=== PATIENT | female | born 1995 | race Two or more races ===

== ENCOUNTER 2020-12-12 10:39 | Emergency (ER) | payer MEDICAID, SELFPAY ==
--- NOTE | ~2020-12-12 | XR_ITS ---
EXAMINATION: XR CHEST CLINICAL INFORMATION: Chest pain COMPARISON: None TECHNIQUE: 2 views of the chest were obtained. FINDINGS: No significant abnormality is noted involving the heart, lungs, mediastinum, bony thorax or soft tissues. XR/XR chest 2V IMPRESSION: Unremarkable examination.
[2020-12-12 11:05] VITALS: BP 107/68; PULSE 80; RESP 16; TEMP 36.7; O2SAT 98; BMI 19.7
--- NOTE | 2020-12-12 11:59 | ECG_ITS ---
Test Reason : CP Blood Pressure : / mmHG Vent. Rate : 068 BPM Atrial Rate : 068 BPM P-R Int : 154 ms QRS Dur : 082 ms QT Int : 346 ms P-R-T Axes : 028 083 044 degrees QTc Int : 367 ms Normal sinus rhythm Normal ECG When compared with ECG of 13-JUL-2018 13:06, Nonspecific T wave abnormality no longer evident in Inferior leads Nonspecific T wave abnormality no longer evident in Lateral leads QT has shortened Referred By: Martine Meyer Electronically Signed By:SAMIA GRANDE
--- NOTE | 2020-12-12 12:13 | ED.CHESTPAIN ---
HPI - Chest Pain General Chief Complaint: Chest Pain Stated Complaint: CHEST PAIN X 2WKS Time Seen by Provider: 12/12/20 11:58 Source: patient Mode of arrival: ambulatory Limitations: no limitations History of Present Illness MD complaint: chest pain Onset (ago): week(s) (2) Timing of current episode: episodic Onset: during rest Pain location: left chest Pain radiation: none Severity: moderate Quality: sharp Relieving factors: nothing Exacerbating factors: inspiration, palpation and movement Treatment prior to arrival: none Related Data Previous Rx's Medication Instructions Recorded cyclobenzaprine 10 mg tablet 10 mg PO TID PRN #14 tab 12/12/20 ibuprofen 600 mg tablet 600 mg PO Q6H PRN #30 tab 12/12/20 Allergies Allergy/AdvReac Type Severity Reaction Status Date / Time No Known Allergies Allergy Unverified 12/24/19 19:31 [No Known Allergies*] Review of Systems Review of Systems: Constitutional : No Weight loss, No Fever, No Chills ENT/Mouth : No sore throat, No Rhinorrhea Eyes: No Eye Pain, No Swelling Cardiovascular : pos Chest Pain, no SOB, no Dyspnea on Exertion, No Orthopnea, No Edema, No Palpitations Respiratory : No Cough, No Sputum Gastrointestinal : no Nausea, No Vomiting, No Diarrhea, No abdominal Pain, No Hematochezia, No Melena Genitourinary : No Dysuria, No Urinary Frequency Musculoskeletal : No joint pain, No Myalgias, No Joint Swelling Skin : No Skin Lesions, No rash Neuro : No Weakness, No Numbness, No Dizziness, No Headache Psych : No Anxiety/Panic, No Depression Heme/Lymph: No Bruising, No Lymphadenopathy Endocrine : No Polyuria, No Polydipsia All other systems reviewed and are negative [facility] Past Medical History Attestation statement: The following information was validated with the patient. Medical History Gender dysphoria Surgical History (Updated 12/12/20 @ 11:07 by Alexandra Sylvester) [place] teeth extracted Social History Social History (Updated 12/12/20 @ 12:14 by Martine Meyer DO) Patient Tobacco Use Status: Never used Tobacco Use of substances other than those prescribed or required for medical reasons: No Advance Directives: No Advance Directives Information Provided: No Physical Exam Vital Signs: Vital Signs: Last Vital Signs Temp 98.0 F 12/12/20 11:05 Pulse 80 12/12/20 11:05 Resp 16 12/12/20 11:05 BP 107/68 12/12/20 11:05 Pulse Ox 98 12/12/20 11:05 Body Mass Index 19.7 Appearance: Alert. Oriented X3. No acute distress. Eyes: Pupils equal, round and reactive to light. ENT: Pharynx normal. Neck: Normal inspection. Neck supple. CVS: Normal heart rate and rhythm. Pulses normal. Chest: ttp L lateral chest wall Respiratory: No respiratory distress. Breath sounds normal. Abdomen: Soft and non-tender. Skin: Skin warm and dry. Normal skin color. Normal skin turgor. Extremities: No lower extremity edema. No calf ttp Neuro: Oriented X 3. No motor deficit. No sensory deficit. Course Course Course Narrative: negative workup stable for DC MDM - Chest Pain MDM Narrative Medical decision making narrative: 25 yo male patient who takes testosterone injections weekly comes in with 2 weeks of pleuritic L sided chest pain no known risk factors - no smoking, no recent infections or vaccines - at this time will need labs, CXR, troponin x 1, ddimer dispo per results and findings. Lab Data Result diagrams: 12/12/20 13:04 12/12/20 13:04 Labs: Lab Results 12/12/20 12/12/20 12/12/20 Range/Units 13:04 13:04 13:04 WBC 5.2 (4.8-10.8) X10*3/uL RBC 5.63 H (4.20-5.50) X10*6/uL Hgb 15.8 (12.0-16.0) g/dl Hct 49.8 H (37-47) % MCV 88.5 (80-98) fL MCH 28.1 (27.0-33.0) pg MCHC 31.7 (31.0-35.0) g/dl RDW 14.9 (11.0-16.0) % Plt Count 243 (160-400) X10*3/uL MPV 9.8 (9.4-12.3) fL Immature Gran % (Auto) 0.2 (0.0-0.4) % Neut % (Auto) 58.5 (45-73) % Lymph % (Auto) 27.8 (20-40) % [place] % (Auto) 8.2 (2-11) % Eos % (Auto) 4.5 H (0-4) % Baso % (Auto) 0.8 (0-2) % Lymph # (Auto) 1.4 (1.2-4.9) X10*3/uL [place] # (Auto) 0.4 (0.1-1.2) X10*3/uL Eos # (Auto) 0.2 (0.0-0.4) X10*3/uL Baso # (Auto) 0.0 (0.0-0.2) X10*3/uL Abs Immat Gran (auto) 0.01 (0.00-0.03) X10*3/uL Absolute Neuts (auto) 3.0 (2.0-8.3) X10*3/uL Absolute Nucleated RBC 0.000 (0.0-0.012) X10*3/uL Nucleated RBC % (auto) 0.0 (0.0-0.2) /100WBC D-Dimer NG/ML Sodium 140 (135-145) mmol/L Potassium 5.2 H (3.3-5.1) mmol/L Chloride 106 (96-108) mmol/L Carbon Dioxide 24 (22-29) mmol/L Anion Gap 15 (12-20) BUN 10 (9-16) mg/dL Creatinine 1.01 (0.5-1.4) mg/dL Estim Creat Clear Calc 75.5 Estimated GFR > 60 Random Glucose 75 (60-115) mg/dL Calcium 9.6 (8.4-10.2) mg/dL Troponin I High Sens < 3.5 (<3.5-17.0) ng/L COVID-19 (RADHA) (Negative) COVID-19 Clin Com 12/12/20 12/12/20 Range/Units 13:04 13:04 WBC (4.8-10.8) X10*3/uL RBC (4.20-5.50) X10*6/uL Hgb (12.0-16.0) g/dl Hct (37-47) % MCV (80-98) fL MCH (27.0-33.0) pg MCHC (31.0-35.0) g/dl RDW (11.0-16.0) % Plt Count (160-400) X10*3/uL MPV (9.4-12.3) fL Immature Gran % (Auto) (0.0-0.4) % Neut % (Auto) (45-73) % Lymph % (Auto) (20-40) % [place] % (Auto) (2-11) % Eos % (Auto) (0-4) % Baso % (Auto) (0-2) % Lymph # (Auto) (1.2-4.9) X10*3/uL [place] # (Auto) (0.1-1.2) X10*3/uL Eos # (Auto) (0.0-0.4) X10*3/uL Baso # (Auto) (0.0-0.2) X10*3/uL Abs Immat Gran (auto) (0.00-0.03) X10*3/uL Absolute Neuts (auto) (2.0-8.3) X10*3/uL Absolute Nucleated RBC (0.0-0.012) X10*3/uL Nucleated RBC % (auto) (0.0-0.2) /100WBC D-Dimer < 200 NG/ML Sodium (135-145) mmol/L Potassium (3.3-5.1) mmol/L Chloride (96-108) mmol/L Carbon Dioxide (22-29) mmol/L Anion Gap (12-20) BUN (9-16) mg/dL Creatinine (0.5-1.4) mg/dL Estim Creat Clear Calc Estimated GFR Random Glucose (60-115) mg/dL Calcium (8.4-10.2) mg/dL Troponin I High Sens (<3.5-17.0) ng/L COVID-19 (RADHA) Negative (Negative) COVID-19 Clin Com See Note ECG Data ECG #1: Attestation: I personally reviewed and interpreted this ECG as follows: ECG interpretation date: 12/12/20 ECG interpretation time: 12:44 Interpretation: Rate: 68 Rhythm: NSR Bailey: normal Normal P waves. Normal DORIS. Normal QRS complex. ST T wave : no NICOLAS, nonspecific qTC: normal prior studies: no acute ischemia The study has been interpreted contemporaneously by me. . Discharge Plan Discharge Clinical Impression: Atypical chest pain, Acute costochondritis Patient Disposition: Home, Self-Care Instructions: Chest Pain (ED), Costochondritis (ED) Additional Instructions: return to ED for any worsening symptoms or concerns Prescriptions: New cyclobenzaprine 10 mg tablet 10 mg PO TID PRN (Reason: muscle spasm) Qty: 14 RF: 0 ibuprofen 600 mg tablet 600 mg PO Q6H PRN (Reason: pain) Qty: 30 RF: 0 Referrals: Physician,Unknown [Primary Care Provider] - 2 days (if not better) Stand Alone Forms: Work/School Release
[2020-12-12 13:11] LABS: MANUAL DIFF FLAG NO
[2020-12-12 13:30] LABS: COVID-19 Test Negative (Negative); IDNOW Serial# 55D5AD1C
[2020-12-12 13:33] LABS: Basophils Percent Auto 0.8 % (0-2); Eosinophils Absolute Auto 0.2 X10*3/uL (0.0-0.4); Eosinophils Percent Auto 4.5 % (0-4); Hematocrit 49.8 % (37-47); Hemoglobin 15.8 g/dl (12.0-16.0); Imm Gran Abs Auto 0.01 X10*3/uL (0.00-0.03); Imm Gran Pct Auto 0.2 % (0.0-0.4); Lymphocytes Absolute Auto 1.4 X10*3/uL (1.2-4.9); Lymphocytes Percent Auto 27.8 % (20-40); Mean Corpuscular HGB Conc 31.7 g/dl (31.0-35.0); Mean Corpuscular Hemoglobin 28.1 pg (27.0-33.0); Mean Corpuscular Volume 88.5 fL (80-98); Mean Platelet Volume 9.8 fL (9.4-12.3); Monocytes Absolute Auto 0.4 X10*3/uL (0.1-1.2); Monocytes Percent Auto 8.2 % (2-11); Neutrophils Percent Auto 58.5 % (45-73); Platelet Count 243 X10*3/uL (160-400); Red Blood Count 5.63 X10*6/uL (4.20-5.50); Red Cell Distribution Width 14.9 % (11.0-16.0); White Blood Count 5.2 X10*3/uL (4.8-10.8)
[2020-12-12 13:35] LABS: D Dimer < 200 NG/ML
[2020-12-12 13:45] LABS: Anion Gap 15 (12-20); Blood Urea Nitrogen 10 mg/dL (9-16); Calcium 9.6 mg/dL (8.4-10.2); Carbon Dioxide 24 mmol/L (22-29); Chloride 106 mmol/L (96-108); Creatinine Clr Calc Pharmacy 75.5; Estimated Glomerular Filt Rate > 60; Glucose Random 75 mg/dL (60-115); Potassium 5.2 mmol/L (3.3-5.1); Sodium 140 mmol/L (135-145)
[2020-12-12 13:47] LABS: Troponin-I High Sensitivity < 3.5 ng/L (<3.5-17.0)
== END 2020-12-12 14:05 | disposition home or self-care (01) ==
PROVIDERS: Emergency Provider Emergency Medicine
DX: R07.89 Other chest pain (principal); M94.0 Chondrocostal junction syndrome [Tietze]; Z20.822 Contact with and (suspected) exposure to COVID-19; F64.9 Gender identity disorder, unspecified
CPT/HCPCS: 36415; 71046; 80048; 84484; 85025; 85379; 87635; 93005; 99283

== ENCOUNTER 2020-12-19 10:00 | Emergency (ER) | payer MEDICAID, SELFPAY | END 2020-12-19 15:42 | disposition left against medical advice (07) | PROVIDERS: Emergency Provider Emergency Medicine | DX: R10.9 Unspecified abdominal pain (principal) ==

== ENCOUNTER 2022-09-24 12:26 | Emergency (ER) | payer OTHER, SELFPAY ==
--- NOTE | ~2022-09-24 | US_ITS ---
EXAMINATION: US ABDOMEN LIMITED CLINICAL INFORMATION: Right upper quadrant pain. Sludge on CT.. COMPARISON: 04/26/2022 TECHNIQUE: Real-time imaging of the right upper quadrant abdominal viscera. FINDINGS: PANCREAS: Normal. LIVER: Normal. The liver is normal in size. The liver contour is normal. Parenchymal echogenicity is normal. No focal hepatic lesion. There is no intrahepatic biliary duct dilatation seen. GALLBLADDER: Normal. The gallbladder is physiologically distended without evidence of stones, sludge, polyps, wall thickening or pericholecystic fluid. COMMON BILE DUCT: Normal in caliber measuring 0.2 cm in diameter. RIGHT KIDNEY: Normal. No hydronephrosis. No renal calculi or focal parenchymal lesions. The kidney measures 9.8 cm in maximum dimension. FREE FLUID: None. US/US abdomen limited IMPRESSION: Normal right upper quadrant ultrasound. No appreciable cholelithiasis or sludge by ultrasound. Abnormality on CT likely corresponded to dense bile.
--- NOTE | ~2022-09-24 | CT_ITS ---
EXAMINATION: CT ABDOMEN AND PELVIS WITHOUT CONTRAST CLINICAL INFORMATION: Left lower quadrant pain. COMPARISON: 07/13/2018 TECHNIQUE: Multidetector volumetric imaging was performed from the superior aspect of the liver through the pubic symphysis. Sagittal and coronal reformatted images were obtained on the technologist's workstation. This CT examination was performed using dose optimization techniques as appropriate, variously including the following: *Automated exposure control *Adjustment of mA and/or kV according to patient size (this includes techniques or standardized protocols for targeted exams where dose is matched to indication/reason for exam; i.e. extremities or head) *Use of iterative reconstruction technique DLP: 322 mGy-cm FINDINGS: LUNG BASES: No pleural or pericardial effusion. LIVER, GALLBLADDER, AND BILIARY TREE: The noncontrast liver is normal in size and contour. No focal hepatic lesion or biliary ductal dilatation is present. Probable sludge in the gallbladder. PANCREAS: No ductal dilatation. SPLEEN: Not enlarged. ADRENAL GLANDS: No adrenal masses. KIDNEYS AND URETERS: The kidneys are symmetric in size. No renal calculus. No hydronephrosis or perinephric stranding. BLADDER: Unremarkable. GASTROINTESTINAL TRACT: Small and large bowel loops are of normal caliber. No small bowel obstruction. Appendix is within normal limits. ABDOMINAL WALL: No significant hernia is appreciated. LYMPH NODES: No bulky abdominal or pelvic lymphadenopathy. VASCULAR: Normal caliber abdominal aorta. PELVIC VISCERA: The uterus and adnexa are unremarkable. OSSEOUS STRUCTURES: No destructive bone lesions. CT/CT abdomen pelvis wo IV con IMPRESSION: No acute abnormality in abdomen or pelvis. Probable sludge in the gallbladder.
[2022-09-24 13:40] VITALS: BP 138/91; PULSE 91; RESP 18; TEMP 36.8; O2SAT 98; BMI 20.7
--- NOTE | 2022-09-24 13:43 | ED_ITS ---
HPI - General Adult General Chief complaint: Abdominal Pain Stated complaint: L side pain Time Seen by Provider: 09/24/22 14:15 Source: patient and old records reviewed Mode of arrival: ambulatory Limitations: no limitations History of Present Illness HPI narrative: 26 yo transgender female to male on weekly testosterone injections with history of anxiety and PUD presents with left lower quadrant abdominal pain and nausea x2 months, worsening over the last 2 weeks. He's had previous US of bilateral ovaries at [facility] that returned unremarkable. Denies fever, chills, chest pain, SOB, vomiting, diarrhea, constipation, dysuria, or hematuria. Onset (ago): month(s) (2) Location: abdomen Radiation: non-radiation Severity: moderate Pain Consistency: constant Associated symptoms: nausea/vomiting Related Data Previous Rx's Medication Instructions Recorded cyclobenzaprine 10 mg tablet 10 mg PO TID PRN muscle spasm #14 12/12/20 tabs ibuprofen 600 mg tablet 600 mg PO Q6H PRN pain #30 tabs 12/12/20 cefuroxime axetil 250 mg tablet 250 mg PO BID #10 tabs 09/24/22 Allergies Allergy/AdvReac Type Severity Reaction Status Date / Time No Known Allergies Allergy Verified 09/24/22 13:44 [No Known Allergies*] Review of Systems Review of Systems: Yes all other systems are reviewed and are negative PMFSH Past Medical History Medical History Gender dysphoria Surgical History (Updated 12/12/20 @ 11:07 by Alexandra Sylvester) [employer] teeth extracted Social History Social History (Updated 12/12/20 @ 12:14 by Becca Meyer DO) Patient Tobacco Use Status: Never used Tobacco Advance Directives: No Advance Directives Information Provided: No Physical Exam ED Vital Signs: Vital Signs - 24 hr 09/24/22 13:40 09/24/22 14:44 Temperature 98.2 F 98.0 F Pulse Rate 91 75 Respiratory Rate 18 15 Blood Pressure 138/91 H 121/81 Pulse Oximetry 98 98 Oxygen Delivery Method Room Air Room Air BMI result Body Mass Index 20.7 VSS Appearance: Alert. Oriented X3. No acute distress. Head: normocephalic, atraumatic. Neck: Normal inspection. Neck supple. CVS: Normal heart rate and rhythm. Pulses normal. Respiratory: No respiratory distress. Breath sounds normal. Abdomen: Soft, tender to palpation to the LLQ with guarding, hypoactive bowel sounds Skin: Skin warm and dry. Normal skin color. Normal skin turgor. No rashes. Extremities: No lower extremity edema. No joint swelling. Neuro/psych: Oriented X 3. Course Course Course Narrative: RME- 26 year old biological female who identifies as male presents for evaluation of left flank pain. Symptoms have been presents for the last 2 months, but worsening. Reports having had ultrasounds done at [facility]. Plan for labs, UA Reevaluation(s) Reevaluation #1: signed out to Lizandro MAURA who will f/u CT results Reevaluation #2: CT of the abdomen overall without acute abnormality, although there was evidence of probable sludge in the gallbladder. Not consistent with diverticulitis, bowel obstruction, perforation, bowel impaction. Upon physical examination mild t enderness over the epigastrium, no over right upper quadrant tenderness. No nausea no vomiting. Right upper quadrant ultrasound obtained revealing no appreciable cholelithiasis or sludge by ultrasound, CT abnormality likely due to dense bile. Bacteriuria noted, patient denies dysuria, fevers, chills, hematuria however she does express some urinary frequency, for which she will be treated with antibiotic for urinary tract infection. Advised outpatient follow- up with her GI doctor/PCP. Discussed worrisome signs and symptoms that would warrant re-evaluation in the emergency department. All questions answered. Stable for discharge. CT/CT abdomen pelvis wo IV con IMPRESSION: No acute abnormality in abdomen or pelvis. Probable sludge in the gallbladder. US/US abdomen limited IMPRESSION: Normal right upper quadrant ultrasound. No appreciable cholelithiasis or sludge by ultrasound. Abnormality on CT likely corresponded to dense bile. Time: 19:26 Medical Decision Making Medical Decision Making [facility] Narrative: 26 yo transgender female to male on weekly testosterone injections with history of anxiety and PUD presents with left lower quadrant abdominal pain and nausea x2 months, worsening over the last 2 weeks. Vital signs are stable. Physical exam significant for left lower quadrant tenderness to palpation with guarding and decreased bowel sounds throughout. Differential Diagnosis Differential Diagnoses: The differential diagnosis associated with the presentation includes PID, TOA, UTI, SBO, diverticulitis, inflammatory bowel disease, colon polyps Lab Data [facility] Lab Attestation statement: I reviewed the patient's lab results. Chronically elevated h&h likely secondary to testosterone injections Urine + for possible infection, may be asymptomatic bacteriuria 09/24/22 13:54 09/24/22 13:54 Labs: Lab Results 09/24/22 09/24/22 09/24/22 Range/Units 13:54 13:54 14:17 WBC 6.5 (4.8-10.8) X10*3/uL RBC 6.38 H (4.20-5.50) X10*6/uL Hgb 18.1 H (12.0-16.0) g/dl Hct 55.8 H (37.0-47.0) % MCV 87.5 (80.0-98.0) fL MCH 28.4 (27.0-33.0) pg MCHC 32.4 (31.0-35.0) g/dl RDW 12.9 (11.0-16.0) % Plt Count 294 (160-400) X10*3/uL MPV 8.8 L (9.4-12.3) fL Immature Gran % (Auto) 0.2 (0.0-0.4) % Neut % (Auto) 59.2 (45-73) % Lymph % (Auto) 31.8 (20-40) % [place] % (Auto) 5.4 (2-11) % Eos % (Auto) 2.6 (0-4) % Baso % (Auto) 0.8 (0-2) % Lymph # (Auto) 2.1 (1.2-4.9) X10*3/uL [place] # (Auto) 0.4 (0.1-1.2) X10*3/uL Eos # (Auto) 0.2 (0.0-0.4) X10*3/uL Baso # (Auto) 0.1 (0.0-0.2) X10*3/uL Abs Immat Gran (auto) 0.01 (0.00-0.03) X10*3/uL Absolute Neuts (auto) 3.8 (2.0-8.3) x10*3/uL Absolute Nucleated RBC 0.000 (0.0-0.012) X10*3/uL Nucleated RBC % (auto) 0.0 (0.0-0.2) /100WBC Sodium 141 (135-145) mmol/L Potassium 4.1 D (3.3-5.1) mmol/L Chloride 106 (96-108) mmol/L Carbon Dioxide 27 (22-29) mmol/L Anion Gap 12 (12-20) BUN 9 (9-16) mg/dL Creatinine 0.96 (0.5-1.4) mg/dL Estim Creat Clear Calc 82.5 Estimated GFR > 60 Random Glucose 84 (60-115) mg/dL Calcium 9.8 (8.4-10.2) mg/dL Total Bilirubin 0.6 (0.0-1.0) mg/dL Direct Bilirubin 0.2 (0.0-0.5) mg/dL AST 16 (5-31) U/L ALT 10 (0-31) U/L Alkaline Phosphatase 54 (39-117) U/L Total Protein 8.1 H (6.5-8.0) g/dL Albumin 4.5 (3.5-5.0) g/dL Lipase 32 (8-78) U/L Urine Color Yellow Urine Appearance Clear Urine pH 5.5 (5.0-9.0) Ur Specific [place] 1.015 (1.005-1.025) Urine Protein Negative (Neg-Trace) mg/dL Urine Glucose (UA) Negative (Negative) mg/dL Urine Ketones Negative (Negative) mg/dL Urine Blood Negative (Negative) Urine Nitrite Negative (Negative) Ur Leukocyte Esterase Moderate (2+) H (Negative) Urine RBC 0-2 (0-2) /HPF Urine WBC 11-20 H (0-5) /HPF Ur Squamous Epith Cells 0-2 (0-2) /HPF Urine Bacteria None Seen (None Seen) Hyaline Casts 0-2 (0-2) /LPF Independent Interpretation I performed an independent interpretation of an: CT Scan Radiology Impression Discussion of test interpretation with radiology: I have reviewed the radiologist's reading. External Record Review External record reviewed: Inpatient record Discharge Plan Discharge Clinical Impression: Abdominal pain, Urinary tract infection Patient Disposition: Home, Self-Care Instructions: Urinary Tract Infection in Women (ED), Abdominal Pain (ED) Additional Instructions: The CT scan of your abdomen did not show any significant abnormal findings. The ultrasound of your gallbladder was overall normal. At this time the exact cause of your abdominal pain is unknown. However, you should follow-up with your GI doctor. Your urine testing was concerning for a possible mild infection, you did express that you were having urinary frequency, for this you have been given a prescription for an antibiotic. Please follow-up with your primary care provider. You may return back to emergency department any new or worsening symptoms or concerns Prescriptions: New cefuroxime axetil 250 mg tablet 250 mg PO BID Qty: 10 0RF No Action cyclobenzaprine 10 mg tablet 10 mg PO TID PRN (Reason: muscle spasm) Qty: 14 0RF ibuprofen 600 mg tablet 600 mg PO Q6H PRN (Reason: pain) Qty: 30 0RF Referrals: May Elizalde MD [Primary Care Provider] -
[2022-09-24 13:57] LABS: MANUAL DIFF FLAG NO
[2022-09-24 14:00] LABS: Basophils Absolute Auto 0.1 X10*3/uL (0.0-0.2); Basophils Percent Auto 0.8 % (0-2); Eosinophils Absolute Auto 0.2 X10*3/uL (0.0-0.4); Eosinophils Percent Auto 2.6 % (0-4); Hemoglobin 18.1 g/dl (12.0-16.0); Imm Gran Abs Auto 0.01 X10*3/uL (0.00-0.03); Imm Gran Pct Auto 0.2 % (0.0-0.4); Lymphocytes Absolute Auto 2.1 X10*3/uL (1.2-4.9); Lymphocytes Percent Auto 31.8 % (20-40); Mean Corpuscular HGB Conc 32.4 g/dl (31.0-35.0); Mean Corpuscular Hemoglobin 28.4 pg (27.0-33.0); Mean Corpuscular Volume 87.5 fL (80.0-98.0); Mean Platelet Volume 8.8 fL (9.4-12.3); Monocytes Absolute Auto 0.4 X10*3/uL (0.1-1.2); Monocytes Percent Auto 5.4 % (2-11); Neutrophils Absolute Auto 3.8 x10*3/uL (2.0-8.3); Neutrophils Percent Auto 59.2 % (45-73); Platelet Count 294 X10*3/uL (160-400); Red Blood Count 6.38 X10*6/uL (4.20-5.50); Red Cell Distribution Width 12.9 % (11.0-16.0); White Blood Count 6.5 X10*3/uL (4.8-10.8)
--- OUTSIDE RECORDS SUMMARY | 2022-09-24 14:01 | XMS_ITS | Continuity of Care Document ---
Author Name Unknown Organization [facility] Shannan yasmany Address [address] [place] [address] [address] [place] [address]- Care Team Providers Care Network Administrator Name Role Phone Amy PENDLETON, Alden Miller Primary Care Physician [phone] Encounter [facility] [place] Date(s): 08/09/20 - 09/08/20 [facility] [address] [place], [place] [address] [place] Allergies, Adverse Reactions, Alerts Substance Reaction Severity Status NKA Active Medications Concerta 27 mg oral tablet, extended release 1 tablet = 27 mg, By Mouth, Daily in AM, 0 Refills, Maintenance, ER Tablet Start Date: 03/18/12 Status: Ordered naproxen 500 mg oral tablet 1 tablet = 500 mg, By Mouth, 2 times a day, # 14 tablet, 0 Refills, Maintenance, 09/25/16 18:12:33,Tablet Start Date: 09/25/16 Stop Date: 10/02/16 Status: Ordered PROzac 40 mg oral capsule 1 capsule = 40 mg, By Mouth, Daily, 0 Refills, Maintenance, 08/13/20 13:36:00 EDT, Partial fill upon patient request if the prescription is for a schedule II opioid drug. Start Date: 08/13/20 Status: Ordered simethicone 80 mg oral tablet 1 tablet = 80 mg, Chew, 3 times a day after meals, PRN as needed for gas, # 60 tablet, 0 Refills, Maintenance, 01/02/18 21:06:28 EDT, Tablet Start Date: 01/02/18 Status: Ordered Testosterone Cypionate 200 mg/mL intramuscular solution = 200 mg, Intramuscular, Every 21 days, 0 Refills, Maintenance, 08/13/20 13:36:00 EDT, Partial fillupon patient request if the prescription is for a schedule II opioid drug. Start Date: 08/13/20 Status: Ordered Social History Social History Type Response Smoking Status Former smoker, quit more than 30 days ago entered on: 09/01/20 Sex
--- OUTSIDE RECORDS SUMMARY | 2022-09-24 14:01 | XMS_ITS | Continuity of Care Document ---
Author Name Unknown Organization [facility] yasmany Address [address] [place] [address] [address] [place] [address]- Care Team Providers Care Investigator Vice Name Role Phone Alden Reyes MD Primary Care Physician Encounter [facility] [place] Date(s): 07/31/22 - 08/30/22 [facility] [address] [place], [place] [address] Allergies, Adverse Reactions, Alerts No Known Allergies Medications Concerta 27 mg oral tablet, extended [...] 30 days ago entered on: 09/01/20 Sex Patient Care team information Care Team Personnel Name: Amy PENDLETON, Alden Miller Position: Reference Physician Member Role: PCP Address: Address: [address] [place] [address] Care Team Related Persons Name: JOANN GONZALES Address: [address] [address] Name: LIZ FOSTER Address: home [address] [place] [address]
--- OUTSIDE RECORDS SUMMARY | 2022-09-24 14:01 | XMS_ITS | Continuity of Care Document ---
Author Name Unknown Organization [facility] yasmany Address [address] [place] [address] [address] [place] [address]- Care Team Providers Care Surgical Consultant Name Role Phone Amy PENDLETON, Alden Miller Primary Care Physician Encounter [facility] [place] Date(s): 07/10/22 - 07/17/22 [facility] [address] [place], [place] [address] Attending Physician: Radha Michelle MD Allergies, Adverse Reactions, Alerts No Known Allergies [...] opioid drug. Start Date: 08/13/20 Status: Ordered Vital Signs Most recent to oldest [Reference Range]: 1 Height 170 cm (07/10/22 10:10 AM) Social History Social History Type Response Smoking Status Former smoker, quit more than 30 days ago entered on: 09/01/20 Sex Patient Care team information Care Team Personnel Name: Amy PENDLETON, Alden Miller Position: Reference Physician Member Role: PCP Address: Address: [address] [place] [address]- Care Team Related Persons Name: JOANN GONZALES Address: [address] [address] Name: LIZ FOSTER Address: home [address] [place] [address]
[2022-09-24 14:02] LABS: Hematocrit 55.8 % (37.0-47.0)
--- OUTSIDE RECORDS SUMMARY | 2022-09-24 14:02 | XMS_ITS | Continuity of Care Document ---
Author Name Unknown Organization [facility] Shannan yasmany Address [address] [place] [address] [address] [place] [address]- Care Team Providers Care Lifestyle Block Farmer Name Role Phone Amy PENDLETON, Alden Miller Primary Care Physician [phone] Encounter [facility] [place] Date(s): 09/29/20 - 10/29/20 [facility] [address] [place], [place] [address] Allergies, Adverse Reactions, Alerts Substance Reaction Severity [...]
--- OUTSIDE RECORDS SUMMARY | 2022-09-24 14:02 | XMS_ITS | Continuity of Care Document ---
Author Name Unknown Organization [facility] Address [address] [place] [address]- Care Team Providers Care Seismic Prospecting Observer Helper Name Role Phone Amy PENDLETON, Alden Miller Primary Care Physician [phone] [place] [facility] [place] Date(s): 09/14/20 - 10/14/20 [facility] [address] [place], [place] [address] Allergies, Adverse Reactions, Alerts [...]
--- OUTSIDE RECORDS SUMMARY | 2022-09-24 14:02 | XMS_ITS | Continuity of Care Document ---
Author Name Unknown Organization [facility] Shannan yasmany Address [address] [place] [address] [address] [place] [address]- Care Team Providers Care Mitten Stitcher Name Role Phone Amy PENDLETON, Alden Miller Primary Care Physician Encounter [facility] [place] Date(s): 09/01/20 - 10/01/20 [facility] [address] [place], [place] [address] Attending Physician: Karuna Seaman Admitting Physician: AdmKaruna abernathy Referring Physician: AdmtrKaruna Allergies, Adverse Reactions, Alerts Substance Reaction Severity [...]
--- OUTSIDE RECORDS SUMMARY | 2022-09-24 14:02 | XMS_ITS | Continuity of Care Document ---
Author Name Unknown Organization [facility] yasmany Address [address] [place] [address] [address] [place] [address]- Care Team Providers Care Credit Verification Clerk Name Role Phone Amy PENDLETON, Alden Miller Primary Care Physician [phone] Encounter [facility] [place] Date(s): 12/12/21 - 01/11/22 [facility] [address] [place], [place] [address] Attending Physician: Karuna Seaman Admitting Physician: Karuna Seaman Referring Physician: AdmtrKaruna Allergies, Adverse Reactions, Alerts No Known Allergies [...] on: 09/01/20 Sex Patient Care team information Personnel Name: Amy PENDLETON , Alden Miller Address: Address: [address] [place] [address]
--- OUTSIDE RECORDS SUMMARY | 2022-09-24 14:02 | XMS_ITS | Continuity of Care Document ---
Author Name Unknown Organization [facility] Shannan yasmany Address [address] [place] [address] [address] [place] [address]- Care Team Providers Care Molder Machine Name Role Phone Amy PENDLETON, Alden Miller Primary Care Physician Encounter [facility] [place] Date(s): 12/12/21 - 12/19/21 [facility] [address] [place] [address] Drive [address] [place], [place] [address] Attending Physician: Suhail Guerin III, MD Allergies, Adverse Reactions, Alerts No Known [...] 30 days ago entered on: 09/01/20 Sex Care Team Personnel Name: Amy PENDLETON , Alden Miller Address: [address] [place] [address]
--- OUTSIDE RECORDS SUMMARY | 2022-09-24 14:02 | XMS_ITS | Continuity of Care Document ---
Author Name Unknown Organization [facility] Shannan yasmany Address [address] [place] [address] [address] [place] [address]- Care Team Providers Care Parole Officer Name Role Phone Amy PENDLETON, Alden Miller Primary Care Physician En[facility] [place] Date(s): 09/01/20 - 09/08/20 [facility] [address] [place], [place] [address] [[email or web address]] Attending Physician: Truong DELA CRUZ MD, Suhail Helms Referring Physician: Alden Reyes MD Allergies, Adverse Reactions, Alerts Substance Reaction Severity [...] recent to oldest [Reference Range]: 1 Height 167 cm (09/01/20 10:14 AM) Pulse Rate [55-90 bpm] 90 bpm (09/01/20 10:14 AM) Blood Pressure [90-138/55-84 mm Hg] 123/ 71mm Hg (09/01/20 10:14 AM) Temperature [96.8-100.4 DegF] 98.6 DegF (09/01/20 10:14 AM) Blood pressure sites Arm, left (09/01/20 10:14 AM) Temperature Route Temporal (09/01/20 10:14 AM) Social History Social History Type Response Smoking Status Former smoker, quit more than 30 days ago entered on: 09/01/20 Sex
--- OUTSIDE RECORDS SUMMARY | 2022-09-24 14:02 | XMS_ITS | Continuity of Care Document ---
Author Name Unknown Organization [facility] Address [address] [place] [address] [address] [place] [address]- Care Team Providers Care Solids Control Technician Name Role Phone Alden Reyes MD Primary Care Physician [phone] [place] [facility] [place] 07/10/22 - 08/09/22 [facility] [address] [place], [place] [address] Attending Physician: Karuna Seaman Admitting Physician: AdmtrKaruna Referring Physician: Admtr, ArVinnie Allergies, Adverse Reactions, Alerts No Known Allergies [...] Reference Physician Member Role: PCP Address: Address: [address] [place] [address]- Care Team Related Persons Name: JOANN GONZALES Address: [address] [address] Name: LIZ FOSTER Address: home [address] [place] [address]
--- OUTSIDE RECORDS SUMMARY | 2022-09-24 14:02 | XMS_ITS | Continuity of Care Document ---
Author Name Unknown Organization [facility] ter Address [address] [place] [address]- Care Team Providers Care Medical Affairs Specialist Name Role Phone Bora PENDLETON, Minoo Martinez Primary Care Physician [place] [facility] [place] 04/28/19 - 04/29/[address] [address]- [facility] Discharge Disposition: A-D/C Walkout Attending Physician: Not on Staff, Attending MD Admitting Physician: Not on Staff, Admitting MD Referring Physician: Not on Staff, Referring MD Allergies, Adverse Reactions, Alerts Substance Reaction [...] Date: 09/25/16 Stop Date: 10/02/16 Status: Ordered simethicone 80 mg oral tablet 1 tablet = 80 mg, Chew, 3 times a day after meals, PRN as needed for gas, # 60 tablet, 0 Refills, Maintenance, 01/02/18 21:06:28 EDT, Tablet Start Date: 01/02/18 Status: Ordered Vital Signs Most recent to oldest [Reference Range]: 1 2 Weight 53.2 kg (04/28/19 7:41 PM) 53.2 kg (04/28/19 6:57 PM) Oxygen Saturation [94-100 %] 99 % (04/28/19 6:57 PM) 100 % (04/28/19 6:02 PM) Pulse Rate [55-90 bpm] 89 bpm (04/28/19 6:57 PM) 99 bpm *H* (04/28/19 6:02 PM) Blood Pressure [90-138/55-84 mm Hg] 121/ 66mm Hg (04/28/19 6:57 PM) Respiratory Rate [16-30 br/min] 17 br/mi n (04/28/19 6:57 PM) Temperature [96.8-100.4 DegF] 98.1 DegF (04/28/19 6:57 PM) Mode of Delivery (Oxygen) Room air (04/28/19 6:57 PM) Room air (04/28/19 6:02 PM) Blood pressure sites Arm, right (04/28/19 6:57 PM) Temperature Route Oral (04/28/19 6:57 PM) Dry Weight 53.2 kg (04/28/19 7:41 PM) 53.2 kg (04/28/19 6:57 PM) Weight Obtained Via Standing scale (04/28/19 6:57 PM) Dry Weight Obtained Via Standing scale (04/28/19 6:57 PM)
--- OUTSIDE RECORDS SUMMARY | 2022-09-24 14:02 | XMS_ITS | Continuity of Care Document ---
Author Name Unknown Organization [facility] [place] Address [address] [place] [address]- Care Team Providers Care Rn Employee Health Name Role Phone Amy PENDLETON, Alden Miller Primary Care Physician [place] [facility] [place](s): 09/08/20 - 10/08/[address] [address]- Allergies, Adverse Reactions, Alerts Substance Reaction Severity [...]
--- OUTSIDE RECORDS SUMMARY | 2022-09-24 14:02 | XMS_ITS | Continuity of Care Document ---
Author Name Unknown Organization [facility] Address [address] [facility], 4t [address] [place] [address]- Care Team Providers Care Cmm Programmer Name Role Phone Amy PENDLETON, Alden Miller Primary Care Physician [place] [facility] [place] Date(s): 08/02/20 - 09/01/20 [facility] [address], 4[address] [place] [address] Allergies, Adverse Reactions, Alerts [...]
--- OUTSIDE RECORDS SUMMARY | 2022-09-24 14:02 | XMS_ITS | Continuity of Care Document ---
Author Name Unknown Organization [facility] yasmany Address [address] [place] [address] [address] [place] [address]- Care Team Providers Care Manager Highway Name Role Phone Amy PENDLETON, Alden Miller Primary Care Physician [phone] [place] [facility] [place]/18/[place] - 05/18/[address] [place], [place] [address] Allergies, Adverse Reactions, Alerts No Known Allergies [...] team information Care Team Personnel Name: Amy PENDLETON , Alden Miller Position: Reference Physician Member Role: PCP Address: Address: [address] [place] [address]- Care Team Related Persons Name: JOANN GONZALES Address: [address] [address] Name: LIZ FOSTER Address: home [address] [place] [address]
--- OUTSIDE RECORDS SUMMARY | 2022-09-24 14:02 | XMS_ITS | Continuity of Care Document ---
Author Name Unknown Organization [facility] ter Address [address] [place] [address]- Care Team Providers Care Head Insulation Board Saw Operator Name Role Phone May Elizalde MD Primary Care Physician [phone] Encounter [facility] Date(s): 04/08/22 - 04/09/[address] [address]- Encounter Diagnosis Chest wall pain(Final) - 04/09/22 Discharge Disposition: A-D/C Home Attending Physician: Wyatt Tovar MD Admitting Physician: Wyatt Tovar MD Referring Physician: Not on Staff, Referring MD Allergies, Adverse Reactions, Alerts No Known [...] opioid drug. Start Date: 08/13/20 Status: Ordered Results Radiology Reports * Exam Date Time Procedure Performing Provider Status 04/08/22 11:41 PM Chest 2 Views Frontal and Lat Anselmo Rodriguez; Auth (Verified) Notes: (Chest 2 Views Frontal and Lat) Reason For Exam: Chest Pain;Other: RESULT: Chest 2 Views Frontal and Lat Chest 2 Views Frontal and Lat Hx of Present Illness: Patient reports left ant chest pain extending into left arm x 3 weeks becoming more severe over time. Also, has abd pain and intermittent dizziness.; Reason: Other:; Chest Pain; Clinical Question(s): Other: COMPARISON: 06/23/2020 FINDINGS: LINES AND TUBES: None. LUNGS AND PLEURA: No pneumothorax. No pleural effusion. The lungs are clear. Pulmonary vascularity is normal. HEART, MEDIASTINUM AND SOLIS: Heart is normal in size. Normal mediastinal silhouette. BONES AND SOFT TISSUES: No acute bony abnormalities. IMPRESSION: No acute abnormality. WSN: [id number] Ordering Physician: Seun Courtney Dictated By: Michael Sheth MD Dictated Date/Time: 04/08/22 11:47 p Reviewed By: Michael Sheth MD Signed By: Michael Sheth MD Signed Date/Time: 04/08/22 11:47 pm Transcribed By: ADAM Transcribed Date/Time: 04/08/22 11:45 pm Vital Signs Most recent to oldest [Reference Range]: 1 2 3 Height 170 cm (04/08/22 10:56 PM) Weight 58 kg (04/08/22 10:56 PM) Oxygen Saturation [94-100 %] 99 % (04/09/22 6:00 AM) 98 % (04/09/22 5:13 AM) 98 % (04/09/22 4:55 AM) Pulse Rate [55-90 bpm] 79 bpm (04/09/22 6:00 AM) 62 bpm (04/09/22 5:13 AM) 70 bpm (04/09/22 4:55 AM) Body Mass Index [18.5-24.99 kg/m2] 20.07 kg/m2 (04/08/22 10:56 PM) Blood Pressure [90-138/55-84 mm Hg] 128/86mm Hg (04/09/22 6:00 AM) 118/68mm Hg (04/09/22 5:13 AM) 96/60mm Hg (04/09/22 4:55 AM) Respiratory Rate [16-30 br/min] 13 br/min *L* (04/09/22 6:00 AM) 14 br/min *L* (04/09/22 5:13 AM) 11 br/min *L* (04/09/22 4:55 AM) Temperature [96.8-100.4 DegF] 98.1 DegF (04/09/22 1:42 AM) 98.0 DegF (04/09/22 1:24 AM) 98.1 DegF (04/08/22 10:56 PM) Mode of Delivery (Oxygen) Room air (04/09/22 6:00 AM) Room air (04/09/22 5:13 AM) Room air (04/09/22 4:55 AM) Blood pressure sites Arm, right (04/09/22 6:00 AM) Arm, right (04/09/22 5:13 AM) Arm, right (04/09/22 4:55 AM) Temperature Route Oral (04/09/22 1:42 AM) Oral (04/09/22 1:24 AM) Oral (04/08/22 10:56 PM) Dry Weight 58 kg (04/08/22 10:56 PM) Weight Obtained Via Patient/family stated (04/08/22 10:59 PM) Standing scale (04/08/22 10:56 PM) Dry Weight Obtained Via Patient/family stated (04/08/22 10:59 PM) Standing scale (04/08/22 10:56 PM) Social History Social History Type Response Smoking Status Former smoker, quit more than 30 days ago entered on: 09/01/20 Sex EKG study * Event Display: EKG Authored Date: Note * BHSPalisha , GALEN S: TRANSCRIBE Meryl PENDLETON, Michael Torres: VERIFY Event Display: Result: Authored Date: [id number] Chest 2 Views Frontal and Lat Hx of Present Illness: Patient reports left ant chest pain extending into left arm x 3 weeks becoming more severe over time. Also, has abd pain and intermittent dizziness.; Reason: Other:; Chest Pain; Clinical Question(s): Other: COMPARISON: 06/23/2020 FINDINGS: LINES AND TUBES: None. LUNGS AND PLEURA: No pneumothorax. No pleural effusion. The lungs are clear. Pulmonary vascularity is normal. HEART, MEDIASTINUM AND SOLIS: Heart is normal in size. Normal mediastinal silhouette. BONES AND SOFT TISSUES: No acute bony abnormalities. IMPRESSION: No acute abnormality. WSN: [id number] Ordering Physician: Seun Courtney Dictated By: Michael Sheth MD Dictated Date/Time: 04/08/22 11:47 p Reviewed By: Michael Sheth MD Signed By: Michael Sheth MD Signed Date/Time: 04/08/22 11:47 pm Transcribed By: ADAM Transcribed Date/Time: 04/08/22 11:45 pm Patient Care team information Care Team Personnel Name: May Elizalde MD Position: [facility] Outreach Member Role: PCP Address: Address: [address] [place] [address] [address] [place], [place] [address] Name: Kaley Gupta NP Position: [facility] Associate Professional Member Role: ED Physician Mobile Electronics Installer Address: Address: [address] [place] [address]- Name: Wyatt Tovar MD Position: [facility] Resident Member Role: Admitting Physician Address: Address: [address] [place] [address]- Name: Corey Tamez Position: [facility] ED TA [facility] Member Role: Cream Dipper Name: Deedee Gipson RN Position: [facility] ED RN W/OE and Tasks Member Role: Patient Care Provider Care Team Related Persons Name: JOANN GONZALES Address: [address] [address] Name: LIZ FOSTER Address: home [address] [place] [address]
--- OUTSIDE RECORDS SUMMARY | 2022-09-24 14:02 | XMS_ITS | Continuity of Care Document ---
Author Name Unknown Organization [facility] ter Address [address] [place] [address]- Care Team Providers Care Lie Detector Operator Name Role Phone Amy PENDLETON, Alden Miller Primary Care Physician [place] [facility] [place] Date(s): 08/13/20 - 08/13/[address] [address]- Discharge Disposition: A-D/C Walkout Attending Physician: Not [...] recent to oldest [Reference Range]: 1 2 Oxygen Saturation [94-100 %] 100 % (08/13/20 1:20 PM) 100 % (08/13/20 12:57 PM) Pulse Rate [55-90 bpm] 82 bpm (08/13/20 1:20 PM) 95 bpm *H* (08/13/20 12:57 PM) Blood Pressure [90-138/55-84 mm Hg] 105/ 61mm Hg (08/13/20 1:20 PM) Respiratory Rate [16-30 br/min] 18 br/mi n (08/13/20 1:20 PM) Temperature [96.8-100.4 DegF] 98.0 DegF (08/13/20 1:20 PM) Mode of Delivery (Oxygen) Room air (08/13/20 1:20 PM) Room air (08/13/20 12:57 PM) Blood pressure sites Arm, right (08/13/20 1:20 PM) Temperature Route Oral (08/13/20 1:20 PM)
--- OUTSIDE RECORDS SUMMARY | 2022-09-24 14:02 | XMS_ITS | Continuity of Care Document ---
Author Name Unknown Organization [facility] yasmany Address [address] [place] [address] [address] [place] [address]- Care Team Providers Care Sorter Upholstery Parts Name Role Phone Amy PENDLETON, Alden Miller Primary Care Physician [place] [facility] [place]05[place]22 - 05/05/22 [facility] [address] [place], [place] [address] Allergies, Adverse Reactions, Alerts No Known Allergies [...] Reference Physician Member Role: PCP Address: Address: [address] [place] [address]- Care Team Related Persons Name: JOANN GONZALES Address: [address] [address] Name: LIZ FOSTER Address: home [address] [place] [address]
--- OUTSIDE RECORDS SUMMARY | 2022-09-24 14:02 | XMS_ITS | Continuity of Care Document ---
Author Name Unknown Organization [facility] ter Address [address] [place] [address]- Care Team Providers Care Supervisor Newspaper Deliveries Name Role Phone Amy PENDLETON, Alden Miller Primary Care Physician [phone] Encounter [facility] [place] Date(s): 06/23/20 - 06/23/[address] [address]- Encounter Diagnosis GERD (gastroesophageal reflux disease)(Final) - 06/23/20 Discharge Disposition: A-D/C Home Attending Physician: Kasey Evangelista MD Admitting Physician: Kasey Evangelista MD Referring Physician: Not on Staff, Referring [...] EDT, Tablet Start Date: 01/02/18 Status: Ordered Results Radiology Reports * Exam Date Time Procedure Performing Provider Status 06/23/20 9:49 AM Chest Portable Catia Hui; Aut h (Verified) Notes: (Chest Portable) Reason For Exam: Chest Pain;Other: RESULT: Chest Portable Chest Portable Hx of Present Illness: hot and heaviness sensation in chest this AM. Similar to episodes of GERD, hx ulcers, no longer on Prilosec. Also experiencing a headache and nausea. sent from work for thea [employer] employee. On HRT for female to male transition; Reason: Other:; Chest Pain; Clinical Question(s):Other: COMPARISON: 03/15/2009. FINDINGS: LINES AND TUBES: None. LUNGS AND PLEURA: Large lung volumes. Otherwise, lungs are clear. No pleural effusion. No pneumothorax. HEART, MEDIASTINUM AND SOLIS: Heart is normal in size. Normal upper mediastinal and hilar contour. BONES AND SOFT TISSUES: No acute abnormality. No evidence of free air beneath the diaphragm. IMPRESSION: No acute abnormality. WSN: [id number] Ordering Physician: Pati Gonzalez Dictated By: Reilly Carreon MD Dictated Date/Time: 06/23/20 9:58 am Reviewed By: Reilly Carreon MD Signed By: Reilly Carreon MD Signed Date/Time: 06/23/20 9:58 am Transcribed By: ADAM Transcribed Date/Time: 06/23/20 9:55 am Vital Signs Most recent to oldest [Reference Range]: 1 2 3 Oxygen Saturation [94-100 %] 99 % (06/23/20 10:30 AM) 99 % (06/23/20 8:49 AM) 100 % (06/23/20 8:03 AM) Pulse Rate [55-90 bpm] 70 bpm (06/23/20 10:30 AM) 83 bpm (06/23/20 8:49 AM) 87 bpm (06/23/20 8:03 AM) Blood Pressure [90-138/55-84 mm Hg] 132/78mm Hg (06/23/20 10:30 AM) 109/53mm Hg (06/23/20 8:49 AM) Respiratory Rate [16-30 br/min] 16 br/min (06/23/20 10:30 AM) 16 br/min (06/23/20 8:49 AM) Temperature [96.8-100.4 DegF] 97.8 DegF (06/23/20 10:30 AM) 97.8 DegF (06/23/20 8:49 AM) Mode of Delivery (Oxygen) Room air (06/23/20 10:30 AM) Room air (06/23/20 8:49 AM) Room air (06/23/20 8:03 AM) Blood pressure sites Arm, right (06/23/20 10:30 AM) Arm, right (06/23/20 8:49 AM) Temperature Route Oral (06/23/20 10:30 AM) Oral (06/23/20 8:49 AM)
--- OUTSIDE RECORDS SUMMARY | 2022-09-24 14:02 | XMS_ITS | Continuity of Care Document ---
Author Name Unknown Organization [facility] Address [address] [place] [address] [address] [place] [address]- Care Team Providers Care General Education Professor Name Role Phone Amy PENDLETON, Alden Miller Primary Care Physician [id number] Date(s): 04/05/22 - 05/17/22 [facility] [address] [place], [place] [address] Attending Physician: Radha Michelle MD Allergies, Adverse [...] Reference Physician Member Role: PCP Address: Address: [address] [place] [address]- Care Team Related Persons Name: JOANN GONZALES Address: [address] [address] Name: LIZ FOSTER Address: [address] [place] [address]
[2022-09-24 14:23] LABS: Anion Gap 12 (12-20); Blood Urea Nitrogen 9 mg/dL (9-16); Calcium 9.8 mg/dL (8.4-10.2); Carbon Dioxide 27 mmol/L (22-29); Chloride 106 mmol/L (96-108); Creatinine Clr Calc Pharmacy 82.5; Estimated Glomerular Filt Rate > 60; Glucose Random 84 mg/dL (60-115); Potassium 4.1 mmol/L (3.3-5.1); Sodium 141 mmol/L (135-145)
[2022-09-24 14:30] LABS: Appearance Urine Clear; Color Urine Yellow; Glucose Urine UA Negative (Negative); Leukocyte Esterase Urine Moderate (2+) (Negative); Nitrite Urine Negative (Negative); PH 5.5 (5.0-9.0); Specific Gravity - Urine 1.015 (1.005-1.025); UMIC TRIGGER UACC YES; Urine Blood Negative (Negative); Urine Ketones Negative (Negative); Urine Protein Negative (Neg-Trace)
[2022-09-24 14:35] LABS: Bacteria Urine None Seen (None Seen); Hyaline Casts Urine 0-2 /LPF (0-2); RBC Urine 0-2 /HPF (0-2); Squamous Epithelial Cell Urine 0-2 /HPF (0-2); UACC Culture Trigger YES
[2022-09-24 14:44] VITALS: BP 121/81; PULSE 75; RESP 15; TEMP 36.7; O2SAT 98
--- NOTE | 2022-09-24 15:10 | PC.NURSE ---
assumed care of this patient. pt aware of plan of care for CT scan of abd. denied having any questions at this time.
[2022-09-24 17:59] LABS: Alanine Aminotransferase 10 U/L (0-31); Albumin Level 4.5 g/dL (3.5-5.0); Alkaline Phosphatase 54 U/L (39-117); Aspartate Amino Transferase 16 U/L (5-31); Bilirubin Direct 0.2 mg/dL (0.0-0.5); Bilirubin Total 0.6 mg/dL (0.0-1.0); Lipase 32 U/L (8-78); Total Protein 8.1 g/dL (6.5-8.0)
[2022-09-24 19:32] VITALS: BP 113/63; PULSE 85; RESP 18; TEMP 36.8; O2SAT 97
== END 2022-09-24 19:43 | disposition home or self-care (01) ==
PROVIDERS: Nurse Practitioner Family; Physician Assistant; Emergency Provider Student in an Organized Health Care Education/Training Program; PCP Family Medicine
DX: R10.32 Left lower quadrant pain (principal); N39.0 Urinary tract infection, site not specified; Z79.899 Other long term (current) drug therapy
CPT/HCPCS: 36415; 74176; 76705; 80048; 80076; 81001; 83690; 85025; 87086; 99283; 99284

== ENCOUNTER 2023-03-12 08:01 | Emergency (ER) | payer OTHER, SELFPAY ==
--- NOTE | 2023-03-12 08:03 | ECG_ITS ---
Test Reason : chest pain Blood Pressure : / mmHG Vent. Rate : 080 BPM Atrial Rate : 080 BPM P-R Int : 150 ms QRS Dur : 088 ms QT Int : 328 ms P-R-T Axes : 042 080 033 degrees QTc Int : 378 ms Normal sinus rhythm Normal ECG When compared with ECG of 12-DEC-2020 12:40, No significant change was found Referred By: Generic ED Physician Electronically Signed By:AGNIESZKA RUVALCABA
[2023-03-12 08:23] VITALS: BP 121/73; PULSE 80; RESP 16; TEMP 37.2; O2SAT 98; BMI 22.3
--- NOTE | 2023-03-12 08:55 | MHC.EDTECH ---
Patient ekg taken and was read by Provider ,blood drawn and sent to lab .
[2023-03-12 08:57] LABS: MANUAL DIFF FLAG NO
[2023-03-12 08:58] LABS: Basophils Percent Auto 0.7 % (0-2); Eosinophils Absolute Auto 0.1 X10*3/uL (0.0-0.4); Eosinophils Percent Auto 2.2 % (0-4); Hematocrit 49.6 % (37.0-47.0); Hemoglobin 15.5 g/dl (12.0-16.0); Imm Gran Abs Auto 0.02 X10*3/uL (0.00-0.03); Imm Gran Pct Auto 0.4 % (0.0-0.4); Lymphocytes Absolute Auto 1.6 X10*3/uL (1.2-4.9); Lymphocytes Percent Auto 29.3 % (20-40); Mean Corpuscular HGB Conc 31.3 g/dl (31.0-35.0); Mean Corpuscular Hemoglobin 26.6 pg (27.0-33.0); Mean Corpuscular Volume 85.1 fL (80.0-98.0); Mean Platelet Volume 8.9 fL (9.4-12.3); Monocytes Absolute Auto 0.4 X10*3/uL (0.1-1.2); Monocytes Percent Auto 6.3 % (2-11); Neutrophils Absolute Auto 3.4 x10*3/uL (2.0-8.3); Neutrophils Percent Auto 61.1 % (45-73); Platelet Count 222 X10*3/uL (160-400); Red Blood Count 5.83 X10*6/uL (4.20-5.50); Red Cell Distribution Width 14.8 % (11.0-16.0); White Blood Count 5.6 X10*3/uL (4.8-10.8)
[2023-03-12 09:11] LABS: Anion Gap 12 (12-20); Blood Urea Nitrogen 14 mg/dL (9-16); Calcium 9.1 mg/dL (8.4-10.2); Carbon Dioxide 23 mmol/L (22-29); Chloride 108 mmol/L (96-108); Creatinine Clr Calc Pharmacy 89.7; Estimated Glomerular Filt Rate > 60; Glucose Random 89 mg/dL (60-115); Sodium 139 mmol/L (135-145)
--- NOTE | 2023-03-12 11:19 | PC.NURSE ---
no answer at 1119 for pt in waiting room
== END 2023-03-12 14:33 | disposition left against medical advice (07) ==
PROVIDERS: Emergency Provider Emergency Medicine; PCP Family Medicine
DX: R07.89 Other chest pain (principal); R51.9 Headache, unspecified; Z79.899 Other long term (current) drug therapy
CPT/HCPCS: 36415; 80048; 85025; 93005; 99283

== ENCOUNTER → 2023-03-12 08:03 | Outpatient (BNV) | payer OTHER, SELFPAY | PROVIDERS: Emergency Provider Emergency Medicine; PCP Family Medicine; Visit Provider Internal Medicine | DX: R07.9 Chest pain, unspecified (principal) | CPT/HCPCS: 93010 ==

== ENCOUNTER 2024-01-31 09:52 | Emergency (ER) | payer OTHER, SELFPAY ==
--- NOTE | ~2024-01-31 | CT_ITS ---
EXAMINATION: CT ABDOMEN AND PELVIS WITH CONTRAST CLINICAL INFORMATION: Abdominal pain. COMPARISON: CT dated September 24, 2022 TECHNIQUE: Multidetector volumetric images were obtained from the superior aspect of the liver through the pubic symphysis following administration 85 mL of Omnipaque 350 intravenous contrast. Sagittal and coronal reformatted images were obtained on the technologist's workstation. Oral contrast: No This CT examination was performed using dose optimization techniques as appropriate, variously including the following: *Automated exposure control *Adjustment of mA and/or kV according to patient size (this includes techniques or standardized protocols for targeted exams where dose is matched to indication/reason for exam; i.e. extremities or head) *Use of iterative reconstruction technique DLP: 368 mGy-cm FINDINGS: LUNG BASES: No acute airspace disease or pulmonary nodules, lung bases. LIVER, GALLBLADDER, AND BILIARY TREE: Liver measures 15 cm. No focal mass. Decreased enhancement along the falciform ligament likely focal fatty infiltration. Main portal vein, hepatic veins and intrahepatic portion of the IVC are patent. No pericholecystic fluid collection or gallbladder wall thickening questionable biliary sludge. No intrahepatic or extrahepatic biliary ductal dilatation.. PANCREAS: No focal pancreatic mass or peripancreatic fluid collections. No main pancreatic ductal dilatation. SPLEEN: Measures 10 cm. No focal mass. ADRENAL GLANDS: No nodular lesions. KIDNEYS AND URETERS: Normal renal mass or hydronephrosis. BLADDER: Fluid-filled. GASTROINTESTINAL TRACT: No intestinal obstruction pattern. No pneumatosis intestinalis. Nonspecific gas and fluid-filled prominent distal ileal loops. Appendix is normal.. ABDOMINAL WALL: No gross hernia. LYMPH NODES: No lymphadenopathy, retroperitoneal or mesenteric. VASCULAR: No aneurysm or dissection, abdominal aorta. OSSEOUS STRUCTURES: No acute fracture or listhesis. No lytic or blastic lesions. CT/CT abdomen pelvis w IV con IMPRESSION: Probable mild enteritis in the correct clinical settings. . Electronically signed by: Santana Pacheco MD 01/31/2024 03:46 PM EDT
[2024-01-31 10:33] VITALS: BP 118/69; PULSE 80; RESP 18; TEMP 36.5; O2SAT 100; BMI 20.4
[2024-01-31 10:55] LABS: Basophils Absolute Auto 0.1 X10*3/uL (0.0-0.2); Basophils Percent Auto 0.9 % (0-2); Eosinophils Absolute Auto 0.1 X10*3/uL (0.0-0.4); Hematocrit 51.1 % (37.0-47.0); Hemoglobin 16.8 g/dl (12.0-16.0); Imm Gran Abs Auto 0.01 X10*3/uL (0.00-0.03); Imm Gran Pct Auto 0.2 % (0.0-0.4); Lymphocytes Absolute Auto 1.4 X10*3/uL (1.2-4.9); Lymphocytes Percent Auto 25.9 % (20-40); MANUAL DIFF FLAG NO; Mean Corpuscular HGB Conc 32.9 g/dl (31.0-35.0); Mean Corpuscular Hemoglobin 28.6 pg (27.0-33.0); Mean Corpuscular Volume 86.9 fL (80.0-98.0); Mean Platelet Volume 8.9 fL (9.4-12.3); Monocytes Absolute Auto 0.4 X10*3/uL (0.1-1.2); Monocytes Percent Auto 7.2 % (2-11); Neutrophils Absolute Auto 3.5 x10*3/uL (2.0-8.3); Neutrophils Percent Auto 63.8 % (45-73); Platelet Count 225 X10*3/uL (160-400); Red Blood Count 5.88 X10*6/uL (4.20-5.50); Red Cell Distribution Width 13.5 % (11.0-16.0); White Blood Count 5.5 X10*3/uL (4.8-10.8)
[2024-01-31 11:10] LABS: Alanine Aminotransferase 10 U/L (0-31); Albumin Level 4.3 g/dL (3.5-5.0); Alkaline Phosphatase 57 U/L (39-117); Anion Gap 10 (12-20); Aspartate Amino Transferase 20 U/L (5-31); Bilirubin Total 0.8 mg/dL (0.0-1.0); Blood Urea Nitrogen 11 mg/dL (9-16); Calcium 9.6 mg/dL (8.4-10.2); Carbon Dioxide 26 mmol/L (22-29); Chloride 108 mmol/L (96-108); Creatinine Clr Calc Pharmacy 69.1; Estimated Glomerular Filt Rate 58; Glucose Random 78 mg/dL (60-115); Potassium 4.2 mmol/L (3.3-5.1); Sodium 140 mmol/L (135-145); Total Protein 7.3 g/dL (6.5-8.0)
--- NOTE | 2024-01-31 12:59 | ED_ITS ---
HPI - General Adult General Chief complaint: Abdominal Pain Stated complaint: nausea-vomiting Time Seen by Provider: 01/31/24 12:58 Source: patient Mode of arrival: ambulatory Limitations: no limitations History of Present Illness ED Provider: Melonie Haskins PA-C HPI narrative: Abdirahman is a 28-year-old assigned female at , now male, with a history of GERD and gastric ulcers presents to the ED today with a chief complaint of vomiting, diarrhea and LLQ abdominal pain x 2 weeks. His partner is present at bedside. He reports a poor appetite and the inability to keep anything down without vomiting. Patient reports incontinence of bowel and bright red blood in stools but denies bloody emesis. 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 He has also been experiencing burning with urination but denies urinary frequency or urgency. Denies any sick contacts or recent travel. He recently discontinue his truvada which he took for prevention as he felt he is no longer at risk. Denies LIN, vision changes, fevers, SOB or chest pain. Related Data Previous Rx's ?Medication ?Instructions ?Recorded cyclobenzaprine 10 mg tablet 10 mg PO TID PRN muscle spasm #14 12/12/20 tabs ibuprofen 600 mg tablet 600 mg PO Q6H PRN pain #30 tabs 12/12/20 cefuroxime axetil 250 mg tablet 250 mg PO BID #10 tabs 09/24/22 ondansetron 4 mg disintegrating 4 mg PO Q8H 3 days #9 tabs 01/31/24 tablet Allergies Allergy/AdvReac Type Severity Reaction Status Date / Time lidocaine AdvReac Unknown Verified 01/31/24 10:35 Review of Systems 2 Constitutional: Constitutional: Reports anorexia, Reports chills, Denies fever(s) and Reports weight loss (5 pounds) Eyes: Eyes: Reports no additional eye complaints, Denies blurry vision and Denies change in vision ENT: Reports system reviewed and no additional complaints, except as documented, Denies vertigo and Denies dizziness Cardiovascular: Cardiovascular: Reports no additional cardiovascular complaints Respiratory: Respiratory: Reports no additional respiratory complaints Gastrointestinal: Gastrointestinal: Reports abdominal pain (Left lower quadrant ), Reports hematochezia, Reports change in bowel habits, Reports fecal incontinence, Reports diarrhea, Reports loose stools, Reports nausea, Reports vomiting and Denies hematemesis Genitourinary: Genitourinary: Denies hematuria, Denies difficulty voiding, Denies urinary incontinence and Denies urinary urgency Comments: Dysuria Musculoskeletal: Musculoskeletal: Reports no additional musculoskeletal complaints Integumentary/Breasts: Skin/Breast: Reports system reviewed and no additional complaints, except as docu Neurologic: Reports system reviewed and no additional complaints, except as documented, Denies vertigo and Denies dizziness Psychiatric: Psychiatric: Reports no additional psychiatric complaints Endocrine: Endocrine: Reports no additional endocrine complaints Hematologic/Lymphatic: Hematologic/Lymphatic: Reports no additional hematologic/lymphatic complaints Allergic/Immunologic: Allergic/Immunologic: Reports no additional allergic/immunologic complaints [facility] Past Medical History Attestation statement: The following information was validated with the patient. Source: old records reviewed and nursing notes reviewed Medical History Gender dysphoria Surgical History Jonancy teeth extracted Social History Social History Alcohol intake: former Patient Tobacco Use Status: Never used Tobacco Smoked in Last 30 Days: No Use of substances other than those prescribed or required for medical reasons: Yes Substance Use Type: Marijuana Advance Directives: No Advance Directives Information Provided: Yes Physical Exam ED Vital Signs: Vital Signs - 24 hr 01/31/24 10:33 01/31/24 16:30 Temperature 97.7 F 98.5 F Pulse Rate 80 82 Respiratory Rate 18 18 Blood Pressure 118/69 127/74 Pulse Oximetry 100 98 Oxygen Delivery Method Room Air Room Air BMI result Body Mass Index 20.4 Const General: cooperative, no acute distress, alert and awake Nutritional Appearance: well nourished Orientation/consciousness: patient oriented x3 Limitations: no limitations [facility] Head: Yes normocephalic and Yes atraumatic Ears: hearing grossly normal bilaterally and external ears normal General nose exam: Normal external nose present Face and sinus: Yes normal facial exam Mouth: Normal oral and palatal mucosa present Eyes General: appearance normal, both eyes and all related structures Periorbital: periorbital findings normal Eyelids: Yes eyelids normal Conjunctivae: conjunctivae normal Sclerae: sclerae normal Pupils: Equal, round and reactive pupils present EOM: EOMs intact bilaterally Neck Neck: Yes normal visual inspection Chest Chest palpation & inspection: tenderness (to palpation over the left chest) Resp Effort & Inspection: normal respiratory effort, able to speak in complete sentences, no cough and respiratory distress Auscultation: clear to auscultation bilaterally, no rhonchi and no wheezes Cardio Rhythm: regular rhythm Heart sounds: no gallops, no murmurs and no rubs GI Inspection: Yes normal to inspection and No distended Palpation (GI): not soft, not firm, nontender and no guarding Auscultation: normal bowel sounds General: Yes no CVA tenderness and Yes deferred Back/Spine/Pelvis Back: no CVA tenderness Skin General skin exam: no rashes or lesions noted Neuro General: patient oriented x3 Cranial nerves: Yes Equal, round and reactive pupils present Cognition (Neuro): normal cognition Extrem General: Yes normal to inspection Psych Appearance: grossly normal Mental Status: mental status grossly normal Speech and movement: Normal speech and movement present Affect: normal affect Attitude: cooperative Thought process: Normal thought process present Thought content: Normal thought content present Insight: Good insight present (Psych) Judgement: Good judgement present (Psych) Medications Administered Discontinued Medications Generic Name Dose Route Start Last Admin Trade Name Freq PRN Reason Stop Dose Admin Iohexol 100 ml 01/31/24 15:18 01/31/24 15:18 Iohexol 350 Mg/Ml 100 Ml Infus..Btl IV 01/31/24 15:19 85 ml ONCE ONE Administration Morphine Sulfate 4 mg 01/31/24 13:28 01/31/24 14:01 Morphine Sulfate 4 Mg/Ml Cartridge IVPUSH 01/31/24 13:29 4 mg ONCE ONE Administration Protocol Ondansetron HCl 4 mg 01/31/24 13:28 01/31/24 14:01 Ondansetron Hcl 4 Mg/2 Ml Vial IVPUSH 01/31/24 13:29 4 mg ONCE ONE Administration Medical Decision Making Medical Decision Making MDM Narrative: Patient is a 28 year old assigned female at , now male, with a history of GERD and gastric ulcer presenting to the emergency department today with nausea, vomiting, abdominal pain, and loose stools. Patient's physical exam was unremarkable. Patient's blood work was unremarkable. Patient's urine showed no acute process. Patient's CT abdomen/pelvis showed enteritis. I explained my physical exam findings as well as all test results to the patient. I answered all questions asked by the patient. Patient tolerated PO while in the department. I stressed the importance of the patient taking his medication as directed (either prescribed or as the over the counter packaging recommends). I stressed the importance of the patient following up with his primary care provider. I stressed the importance of the patient returning to the emergency department immediately if his symptoms were to worsen or if he were to develop any dizziness, shortness of breath, difficulty breathing, chest pain, blurry vision, loss of vision, nausea, vomiting, abdominal pain, fever, chills, back pain, or any other complaints. Patient verbalized agreement and understanding with this treatment plan and discharge. Differential Diagnosis Differential Diagnoses: The differential diagnosis associated with the presentation includes Enteritis Diarrhea Nausea Vomiting Admission/Observation Consideration of admission/observation: Escalation of care including admission/observation considered Patient would have been admitted to the hospital had his work up had any findings where hospital admission was appropriate and his clinical presentation warranted hospital admission. Lab Data [facility] Lab Attestation statement: I reviewed the patient's lab results. My interpretation of these results are in the MDM Rationale portion of this note. 01/31/24 10:49 01/31/24 10:49 Labs: Lab Results 01/31/24 01/31/24 Range/Units 10:49 16:34 WBC 5.5 (4.8-10.8) X10*3/uL RBC 5.88 H (4.20-5.50) X10*6/uL Hgb 16.8 H (12.0-16.0) g/dl Hct 51.1 H (37.0-47.0) % MCV 86.9 (80.0-98.0) fL MCH 28.6 (27.0-33.0) pg MCHC 32.9 (31.0-35.0) g/dl RDW 13.5 (11.0-16.0) % Plt Count 225 (160-400) X10*3/uL MPV 8.9 L (9.4-12.3) fL Immature Gran % (Auto) 0.2 (0.0-0.4) % Neut % (Auto) 63.8 (45-73) % Lymph % (Auto) 25.9 (20-40) % [place] % (Auto) 7.2 (2-11) % Eos % (Auto) 2.0 (0-4) % Baso % (Auto) 0.9 (0-2) % Lymph # (Auto) 1.4 (1.2-4.9) X10*3/uL [place] # (Auto) 0.4 (0.1-1.2) X10*3/uL Eos # (Auto) 0.1 (0.0-0.4) X10*3/uL Baso # (Auto) 0.1 (0.0-0.2) X10*3/uL Abs Immat Gran (auto) 0.01 (0.00-0.03) X10*3/uL Absolute Neuts (auto) 3.5 (2.0-8.3) x10*3/uL Absolute Nucleated RBC 0.000 (0.0-0.012) X10*3/uL Nucleated RBC % (auto) 0.0 (0.0-0.2) /100WBC Sodium 140 (135-145) mmol/L Potassium 4.2 (3.3-5.1) mmol/L Chloride 108 (96-108) mmol/L Carbon Dioxide 26 (22-29) mmol/L Anion Gap 10 L (12-20) BUN 11 (9-16) mg/dL Creatinine 1.11 (0.5-1.4) mg/dL Estim Creat Clear Calc 69.1 Estimated GFR 58 Random Glucose 78 (60-115) mg/dL Calcium 9.6 (8.4-10.2) mg/dL Total Bilirubin 0.8 (0.0-1.0) mg/dL AST 20 (5-31) U/L ALT 10 (0-31) U/L Alkaline Phosphatase 57 (39-117) U/L Total Protein 7.3 (6.5-8.0) g/dL Albumin 4.3 (3.5-5.0) g/dL Beta HCG, Quant < 2 mIU/mL Urine Color Yellow Urine Appearance Clear Urine pH 5.5 (5.0-9.0) Ur Specific [place] >= 1.030 H (1.005-1.025) Urine Protein Negative (Neg-Trace) mg/dL Urine Glucose (UA) Negative (Negative) mg/dL Urine Ketones 40 (Negative) mg/dL Urine Blood Negative (Negative) Urine Nitrite Negative (Negative) Ur Leukocyte Esterase Negative (Negative) Independent Interpretation I performed an independent interpretation of an: CT Scan Interpretation: My interpretation is in agreement with the radiologist's impression of this imaging study. L EXAMINATION: CT ABDOMEN AND PELVIS WITH CONTRAST CLINICAL INFORMATION: Abdominal pain. COMPARISON: CT dated September 24, 2022 TECHNIQUE: Multidetector volumetric images were obtained from the superior aspect of the liver through the pubic symphysis following administration 85 mL of Omnipaque 350 intravenous contrast. Sagittal and coronal reformatted images were obtained on the technologist's workstation. Oral contrast: No This CT examination was performed using dose optimization techniques as appropriate, variously including the following: *Automated exposure control *Adjustment of mA and/or kV according to patient size (this includes techniques or standardized protocols for targeted exams where dose is matched to indication/reason for exam; i.e. extremities or head) *Use of iterative reconstruction technique DLP: 368 mGy-cm FINDINGS: LUNG BASES: No acute airspace disease or pulmonary nodules, lung bases. LIVER, GALLBLADDER, AND BILIARY TREE: Liver measures 15 cm. No focal mass. Decreased enhancement along the falciform ligament likely focal fatty infiltration. Main portal vein, hepatic veins and intrahepatic portion of the IVC are patent. No pericholecystic fluid collection or gallbladder wall thickening questionable biliary sludge. No intrahepatic or extrahepatic biliary ductal dilatation.. PANCREAS: No focal pancreatic mass or peripancreatic fluid collections. No main pancreatic ductal dilatation. SPLEEN: Measures 10 cm. No focal mass. ADRENAL GLANDS: No nodular lesions. KIDNEYS AND URETERS: Normal renal mass or hydronephrosis. BLADDER: Fluid-filled. GASTROINTESTINAL TRACT: No intestinal obstruction pattern. No pneumatosis intestinalis. Nonspecific gas and fluid-filled prominent distal ileal loops. Appendix is normal.. ABDOMINAL WALL: No gross hernia. LYMPH NODES: No lymphadenopathy, retroperitoneal or mesenteric. VASCULAR: No aneurysm or dissection, abdominal aorta. OSSEOUS STRUCTURES: No acute fracture or listhesis. No lytic or blastic lesions. CT/CT abdomen pelvis w IV con IMPRESSION: Probable mild enteritis in the correct clinical settings. Electronically signed by: Santana Pacheco MD 01/31/2024 03:46 PM EDT Dictated By: Santana Lu Signed By: Electronically signed by Santana Vargas 01/31/24 1546 Radiology Impression Discussion of test interpretation with radiology: I have reviewed the radiologist's reading. Discharge Plan Discharge Clinical Impression: Enteritis Patient Disposition: Home, Self-Care Instructions: Enteritis (ED) Additional Instructions: Your labs are reassuring. Your CT scan shows evidence of enteritis which is a virus of the intestines and will resolve on its own. Follow up with your primary care provider. Return to the emergency department immediately if your symptoms worsen or if you develop any dizziness, shortness of breath, difficulty breathing, chest pain, blurry vision, loss of vision, nausea, vomiting, abdominal pain, fever, chills, back pain, or any other complaints. Prescriptions: New ondansetron 4 mg tablet,disintegrating 4 mg PO Q8H 3 Days Qty: 9 0RF No Action cyclobenzaprine 10 mg tablet 10 mg PO TID PRN (Reason: muscle spasm) Qty: 14 0RF ibuprofen 600 mg tablet 600 mg PO Q6H PRN (Reason: pain) Qty: 30 0RF cefuroxime axetil 250 mg tablet 250 mg PO BID Qty: 10 0RF Referrals: May Elizalde MD [Primary Care Provider] - Stand Alone Forms: Work/School Release Print Language: Malay
[2024-01-31] MEDS: Morphine Sulfate 4 MG/ML CARTRIDGE IVPUSH (14:01)
[2024-01-31] MEDS: ondansetron HCL 4 MG/2 ML VIAL IVPUSH (14:01)
[2024-01-31 14:59] LABS: HCG Quantitative < 2 mIU/mL
[2024-01-31] MEDS: iohexoL 350 MG/ML 100 ML INFUS..BTL IV (15:18)
[2024-01-31 16:30] VITALS: BP 127/74; PULSE 82; RESP 18; TEMP 36.9; O2SAT 98
[2024-01-31 16:40] LABS: Appearance Urine Clear; Color Urine Yellow; Glucose Urine UA Negative (Negative); Leukocyte Esterase Urine Negative (Negative); Nitrite Urine Negative (Negative); PH 5.5 (5.0-9.0); Specific Gravity - Urine >= 1.030 (1.005-1.025); Urine Blood Negative (Negative); Urine Ketones 40 mg/dL (Negative); Urine Protein Negative (Neg-Trace)
--- NOTE | 2024-01-31 17:18 | PC.NURSE ---
unable to provide stool specimen , discharge instructions reviewed with patient
[2024-01-31 17:19] VITALS: BP 127/74; PULSE 82; RESP 18; TEMP 36.9; O2SAT 98
== END 2024-01-31 17:19 | disposition home or self-care (01) ==
PROVIDERS: Emergency Provider Emergency Medicine Emergency Medical Services; PCP Family Medicine
DX: K52.89 Other specified noninfective gastroenteritis and colitis (principal); R11.2 Nausea with vomiting, unspecified; R10.32 Left lower quadrant pain; R30.0 Dysuria; R15.9 Full incontinence of feces; R10.2 Pelvic and perineal pain; Z79.899 Other long term (current) drug therapy
CPT/HCPCS: 36415; 74177; 80053; 81003; 84702; 85025; 96374; 96375; 99284; J2270; J2405; Q9967

== ENCOUNTER → 2024-01-31 13:21 | Outpatient (BNV) | payer OTHER, SELFPAY | PROVIDERS: Emergency Provider Emergency Medicine Emergency Medical Services; PCP Family Medicine; Visit Provider Radiology Diagnostic Radiology | DX: R11.2 Nausea with vomiting, unspecified (principal) | CPT/HCPCS: 74177 ==

== ENCOUNTER 2024-05-25 10:30 | Emergency (ER) | payer OTHER, SELFPAY ==
--- NOTE | ~2024-05-25 | XR_ITS ---
CLINICAL HISTORY: cp Chest radiographs, 2 views Comparison: CR - XR CHEST 2V - 12/12/20 12:13 EDT Findings: The cardiomediastinal silhouette is not enlarged. Pulmonary vascularity is unremarkable. No focal consolidation or effusion. No pneumothorax. IMPRESSION: No acute cardiopulmonary findings. This document has been electronically signed by: Maikel Wing DO on 05/25/2024 11:30:51
--- NOTE | 2024-05-25 10:33 | ECG_ITS ---
Test Reason : CP Blood Pressure : */* mmHG Vent. Rate : 77 BPM Atrial Rate : 77 BPM P-R Int : 144 ms QRS Dur : 84 ms QT Int : 340 ms P-R-T Axes : 68 88 46 degrees QTcB Int : 384 ms Normal sinus rhythm with sinus arrhythmia Normal ECG When compared with ECG of 12-Mar-2023 08:06, No significant change was found Referred By: Generic ED Physician Electronically Signed By: AGNIESZKA RUVALCABA
[2024-05-25 10:52] VITALS: BP 120/76; PULSE 82; RESP 19; TEMP 36.6; O2SAT 98; BMI 20.7
--- NOTE | 2024-05-25 11:12 | ED_ITS ---
HPI - Chest Pain General Chief Complaint: Chest Pain Stated Complaint: Chest Pain X 2 Days Time Seen by Provider: 05/25/24 11:08 Source: patient, RN notes reviewed and old records reviewed Mode of arrival: ambulatory Limitations: no limitations History of Present Illness ED Provider: Crispin HPI narrative: Patient is a 28-year-old assigned female at , now male, pmhx of GERD, gastric ulcers, currently on testosterone presenting to the emergency department with complaint of left sided chest pain for the past month which has worsened over the past 2 days. States that PCP has been monitoring labs monthly to determine if testosterone needs to be paused. States that chest pain radiates to left arm. Denies palpitations or shortness of breath. Denies fevers. Reports some nausea, but states is unsure if this is related to his GERD. Describes pain as a heaviness. MD complaint: chest pain Onset (ago): month(s) Timing of current episode: increasing Onset: during rest Pain location: left chest Pain radiation: left arm Quality: heaviness Associated symptoms: nausea Treatment prior to arrival: none Related Data Previous Rx's ?Medication ?Instructions ?Recorded cyclobenzaprine 10 mg tablet 10 mg PO TID PRN muscle spasm #14 12/12/20 tabs ibuprofen 600 mg tablet 600 mg PO Q6H PRN pain #30 tabs 12/12/20 cefuroxime axetil 250 mg tablet 250 mg PO BID #10 tabs 09/24/22 ondansetron 4 mg disintegrating 4 mg PO Q8H 3 days #9 tabs 01/31/24 tablet cyclobenzaprine 5 mg tablet 5 mg PO TID PRN muscle spasm #10 05/25/24 tabs lidocaine 5 % topical patch 1 patch topical DAILY #15 ea 05/25/24 Allergies Allergy/AdvReac Type Severity Reaction Status Date / Time novacaine Allergy Unknown Uncoded 05/25/24 10:54 Review of Systems 2 Review of Systems: As per HPI Yes all other systems are reviewed and are negative Constitutional: Constitutional: Reports as per HPI PMFSH Past Medical History Medical History Gender dysphoria Surgical History [place] teeth extracted Social History Social History Alcohol intake: former Patient Tobacco Use Status: Never used Tobacco Substance Use Type: Marijuana Advance Directives: No Advance Directives Information Provided: Yes Do you have a plan to hurt others: No Plan Physical Exam 2 Vital Signs: Vital Signs: Last Vital Signs Temp 98 F 05/25/24 10:52 Pulse 72 05/25/24 13:51 Resp 16 05/25/24 13:51 BP 120/76 05/25/24 10:52 Pulse Ox 98 05/25/24 13:51 O2 Del Method Room Air 05/25/24 13:51 BMI result Body Mass Index 20.7 Vital signs have been reviewed and appear to be correct. Blood pressure normal. Heart rate normal. Respiratory rate normal. Temperature normal. Oxygen saturation normal. Const: General: cooperative, healthy appearing and no acute distress O rientation/consciousness: oriented to person, oriented to place, oriented to time and patient oriented x3 Limitations: no limitations HEENT: Head: Yes normocephalic and Yes atraumatic Ears: external ears normal General nose exam: Normal external nose present Face and sinus: Yes face symmetric Mouth: oropharynx normal and moist mucous membranes Throat: Yes uvula midline Eyes: Pupils: Equal, round and reactive pupils present Neck: Neck: Yes normal visual inspection and Yes supple Resp: Effort & Inspection: normal respiratory effort and able to speak in complete sentences Auscultation: clear to auscultation bilaterally Cardio: Rate: regular rate Rhythm: regular rhythm Heart sounds: S1 normal heart sound present and S2 normal heart sound present GI: Palpation (GI): Soft to palpation and nontender Auscultation: n ormoactive bowel sounds : General: Yes no CVA tenderness Back/Spine/Pelvis: Back: no CVA tenderness Skin: General skin exam: elasticity normal and turgor normal Neuro: General: oriented to person, oriented to place, oriented to time, patient oriented x3, moves all extremities, no focal motor deficits and CN's II- XI intact bilaterally Cranial nerves: Yes Equal, round and reactive pupils present Cognition (Neuro): normal cognition Extrem: General: Yes full ROM, Yes no pedal edema and Yes no calf tenderness Psych: Mental Status: mental status grossly normal Affect: normal affect Thought process: Normal thought process present Medical Decision Making Medical Decision Making MDM Narrative: Patient is a 28-year-old assigned female at , now male, pmhx of GERD, gastric ulcers, currently on testosterone presenting to the emergency department with complaint of left sided chest pain for the past month which has worsened over the past 2 days. On exam patient is awake, A+Ox3, VS WNL, afebrile, normal neurological exam without focal deficits, physical exam findings as above. Given reported symptoms and physical exam findings, initial differential includes but is not limited to ACS, PE, musculoskeletal pain, costochondritis, GERD. Labs notable for no leukocytosis, mildly elevated H&H, negative d-dimer. EKG shows normal sinus rhythm. X-ray chest notable for no evidence of pneumonia, pneumothorax. My interpretation is in agreement with the radiologist's interpretation. Results discussed with patient and all questions answered. Will refer to GI and cardiology for further evaluation. HEART score 1. Feel patient is stable for discharge. Return precautions discussed at bedside. Patient verbalized understanding of and agreement with plan. Differential Diagnosis Differential Diagnoses: The differential diagnosis associated with the presentation includes as per [facility] Admission/Observation Consideration of admission/observation: Escalation of care including admission/observation considered Patient would have been admitted to the hospital had their work up had any findings where hospital admission was appropriate and their clinical presentation warranted hospital admission. Lab Data [facility] Lab Attestation statement: I reviewed the patient's lab results. As per [facility] 05/25/24 11:14 05/25/24 11:14 Labs: Lab Results 05/25/24 05/25/24 05/25/24 Range/Units 11:13 11:14 13:50 WBC 4.8 (4.8-10.8) X10*3/uL RBC 6.24 H (4.20-5.50) X10*6/uL Hgb 17.9 H (12.0-16.0) g/dl Hct 54.4 H (37.0-47.0) % MCV 87.2 (80.0-98.0) fL MCH 28.7 (27.0-33.0) pg MCHC 32.9 (31.0-35.0) g/dl RDW 13.1 (11.0-16.0) % Plt Count 218 (160-400) X10*3/uL MPV 8.9 L (9.4-12.3) fL Immature Gran % (Auto) 0.2 (0.0-0.4) % Neut % (Auto) 53.3 (45-73) % Lymph % (Auto) 36.3 (20-40) % [place] % (Auto) 7.5 (2-11) % Eos % (Auto) 1.7 (0-4) % Baso % (Auto) 1.0 (0-2) % Lymph # (Auto) 1.7 (1.2-4.9) X10*3/uL [place] # (Auto) 0.4 (0.1-1.2) X10*3/uL Eos # (Auto) 0.1 (0.0-0.4) X10*3/uL Baso # (Auto) 0.1 (0.0-0.2) X10*3/uL Abs Immat Gran (auto) 0.01 (0.00-0.03) X10*3/uL Absolute Neuts (auto) 2.6 (2.0-8.3) x10*3/uL Absolute Nucleated RBC 0.000 (0.0-0.012) X10*3/uL Nucleated RBC % (auto) 0.0 (0.0-0.2) /100WBC PT 14.7 H (10.9-12.4) SEC INR 1.3 H (0.9-1.1) D-Dimer High Sensitivty 151 NG/ML Sodium 141 (135-145) mmol/L Potassium 3.7 (3.3-5.1) mmol/L Chloride 108 (96-108) mmol/L Carbon Dioxide 26 (22-29) mmol/L Anion Gap 11 L (12-20) BUN 9 (9-16) mg/dL Creatinine 0.92 (0.5-1.4) mg/dL Estim Creat Clear Calc 84.5 Estimated GFR > 60 Random Glucose 62 (60-115) mg/dL Calcium 9.8 (8.4-10.2) mg/dL Troponin I High Sens < 2.7 (<3.5-17.0) ng/L Beta HCG, Quant < 2 mIU/mL Independent Interpretation I performed an independent interpretation of an: EKG (normal sinus rhythm, rate 77bpm, normal MD interval and QTc) and Plain X-Ray Interpretation: X-ray chest notable for no evidence of pneumonia, pneumothorax. Radiology Impression Discussion of test interpretation with radiology: I have reviewed the radiologist's reading. Radiologist Impression: Chest radiographs, 2 views Comparison: CR - XR CHEST 2V - 12/12/20 12:13 EDT Findings: The cardiomediastinal silhouette is not enlarged. Pulmonary vascularity is unremarkable. No focal consolidation or effusion. No pneumothorax. IMPRESSION: No acute cardiopulmonary findings. External Record Review External record reviewed: Inpatient record, Office record and Outpatient record Prescription Management I considered prescription management with: Pain Medication Scores Heart Score History: -0- slightly suspicious ECG: -0- normal Age: -0- < or = 45 Risk factory: -1- 1 or 2 risk factors Troponin: -0- < or = normal limit Score: 1 Risk: 1.7% Discharge Plan Discharge Clinical Impression: Atypical chest pain Patient Disposition: Home, Self-Care Instructions: Noncardiac Chest Pain (ED) Additional Instructions: You were evaluated in the emergency department today for chest pain. 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 Please schedule an appointment for follow-up with your primary care physician as soon as possible. Return to the emergency department if you experience worsening or uncontrolled chest pain, shortness of breath, lightheadedness, feeling faint, loss of consciousness, nausea, vomiting, or any other concerning symptoms. Prescriptions: New lidocaine 5 % adhesive patch,medicated 1 patch topical DAILY Qty: 15 0RF Rx Instructions: leave on most painful area for up to 12 hrs cyclobenzaprine 5 mg tablet 5 mg PO TID PRN (Reason: muscle spasm) Qty: 10 0RF No Action cyclobenzaprine 10 mg tablet 10 mg PO TID PRN (Reason: muscle spasm) Qty: 14 0RF ibuprofen 600 mg tablet 600 mg PO Q6H PRN (Reason: pain) Qty: 30 0RF cefuroxime axetil 250 mg tablet 250 mg PO BID Qty: 10 0RF ondansetron 4 mg tablet,disintegrating 4 mg PO Q8H 3 Days Qty: 9 0RF Referrals: [facility] [Provider Group] - 1 week (chest pain) [facility] [Provider Group] - 1 week (epigastric pain) Print Language: [place] Lankan
[2024-05-25 11:43] LABS: MANUAL DIFF FLAG NO
[2024-05-25 11:45] LABS: Basophils Absolute Auto 0.1 X10*3/uL (0.0-0.2); Eosinophils Absolute Auto 0.1 X10*3/uL (0.0-0.4); Eosinophils Percent Auto 1.7 % (0-4); Hematocrit 54.4 % (37.0-47.0); Hemoglobin 17.9 g/dl (12.0-16.0); Imm Gran Abs Auto 0.01 X10*3/uL (0.00-0.03); Imm Gran Pct Auto 0.2 % (0.0-0.4); Lymphocytes Absolute Auto 1.7 X10*3/uL (1.2-4.9); Lymphocytes Percent Auto 36.3 % (20-40); Mean Corpuscular HGB Conc 32.9 g/dl (31.0-35.0); Mean Corpuscular Hemoglobin 28.7 pg (27.0-33.0); Mean Corpuscular Volume 87.2 fL (80.0-98.0); Mean Platelet Volume 8.9 fL (9.4-12.3); Monocytes Absolute Auto 0.4 X10*3/uL (0.1-1.2); Monocytes Percent Auto 7.5 % (2-11); Neutrophils Absolute Auto 2.6 x10*3/uL (2.0-8.3); Neutrophils Percent Auto 53.3 % (45-73); Platelet Count 218 X10*3/uL (160-400); Red Blood Count 6.24 X10*6/uL (4.20-5.50); Red Cell Distribution Width 13.1 % (11.0-16.0); White Blood Count 4.8 X10*3/uL (4.8-10.8)
[2024-05-25 12:09] LABS: Anion Gap 11 (12-20); Blood Urea Nitrogen 9 mg/dL (9-16); Calcium 9.8 mg/dL (8.4-10.2); Carbon Dioxide 26 mmol/L (22-29); Chloride 108 mmol/L (96-108); Creatinine Clr Calc Pharmacy 84.5; Estimated Glomerular Filt Rate > 60; Glucose Random 62 mg/dL (60-115); Potassium 3.7 mmol/L (3.3-5.1); Sodium 141 mmol/L (135-145)
[2024-05-25 12:12] LABS: HCG Quantitative < 2 mIU/mL
[2024-05-25 12:12] LABS: Troponin-I High Sensitivity < 2.7 ng/L (<3.5-17.0)
[2024-05-25 13:51] VITALS: PULSE 72; RESP 16; O2SAT 98
[2024-05-25 14:06] LABS: INTERNATIONAL NORM RATIO 1.3 (0.9-1.1); Prothrombin Time 14.7 SEC (10.9-12.4)
[2024-05-25 14:08] LABS: D Dimer High Sensitivity 151 NG/ML
[2024-05-25 15:06] VITALS: BP 123/60; PULSE 60; RESP 18; TEMP 36.6; O2SAT 98
[2024-05-25] MEDS: Ketorolac Tromethamine 15 MG/ML VIAL IVPUSH (15:10)
[2024-05-25 15:17] VITALS: BP 123/60; PULSE 60; RESP 18; TEMP 36.6; O2SAT 98
== END 2024-05-25 15:17 | disposition home or self-care (01) ==
PROVIDERS: Registered Nurse Emergency; Emergency Provider Emergency Medicine; PCP Family Medicine
DX: R07.89 Other chest pain (principal); R11.2 Nausea with vomiting, unspecified; I49.8 Other specified cardiac arrhythmias; M79.602 Pain in left arm; R10.2 Pelvic and perineal pain; Z79.899 Other long term (current) drug therapy
CPT/HCPCS: 36415; 71046; 80048; 84484; 84702; 85025; 85379; 85610; 93005; 96374; 99284; J1885

== ENCOUNTER → 2024-05-25 10:33 | Outpatient (BNV) | payer OTHER, SELFPAY | PROVIDERS: Emergency Provider Emergency Medicine; PCP Family Medicine; Visit Provider Internal Medicine | DX: R07.9 Chest pain, unspecified (principal); I49.8 Other specified cardiac arrhythmias | CPT/HCPCS: 93010 ==

== ENCOUNTER → 2024-05-25 10:55 | Outpatient (BNV) | payer OTHER, SELFPAY | PROVIDERS: Emergency Provider Emergency Medicine; PCP Family Medicine; Visit Provider Radiology Diagnostic Radiology | DX: R07.9 Chest pain, unspecified (principal) | CPT/HCPCS: 71046 ==

== ENCOUNTER 2024-09-15 08:52 | Emergency (ER) | payer OTHER, SELFPAY ==
[2024-09-15 09:06] VITALS: BP 122/75; PULSE 90; RESP 16; TEMP 36.4; O2SAT 98; BMI 20.7
[2024-09-15 09:31] LABS: IDNOW Serial# 55D5AD1C; Strep A Nucleic Acid Negative (Negative)
--- OUTSIDE RECORDS SUMMARY | 2024-09-15 10:16 | XMS_ITS | Clinical Summary ---
Author Organization [facility] it Address [address] [place] [address] Care Team Providers Care Visual Stylist Name Role Phone Unavailable Primary Care Provider Unavailabl e Surgical History Surgery Date Site/Laterality Comments WISDOM TOOTH EXTRACTION PROCEDURE: HISTORICAL WISDOM TEETH EXTRACTION Medical History Medical History Date Comments ADHD (attention deficit hype ractivity disorder) 09/02/2013 DX:ADHD (attention deficit hyperactivity disorder); COMMENT: Was on Concerta, off since 2011 IBS (irritable bowel syndrome) 10/06/2019 D X:IBS (irritable bowel syndrome) Family History Medical History Relation Name Comments ADD / ADHD Brother Other: HEALTHY Father Diabetes Maternal Grandmother HTN, hy perlipidemia Other: HEALTHY Mother Diabetes Uncle maternal Relation Name Status Comments Brother Father Maternal Grandmother Mother Uncle Social History Tobacco Use Types Packs/Day Years Used Date Smoking Tobacco: Former Cigarettes Q uit: 05/14/2015 Smokeless Tobacco: Never Alcohol Use Standard Drinks/Week Comments No 0 (1 standard drink = 0.6 oz pur e alcohol) Comments Unknown Sex and Gender Information Value Date Recorded Sex Assigned at Not on file Legal Sex Female 4:31 PM EST Gender Identity Not on file Sexual Orientation Not on file Obstetrics History Plan of Treatment Health Maintenance Due Date Last Done Comments Cervical Cancer Screening: Pap Smear 2014 COVID-19 Vaccine ( season) 2023 Influenza Vaccine (Season Ended) 2024 02/03/2020, 04/26/2010, 04/25/2009, Additional history exists DTaP,Tdap,and Td Vaccines (8 - Td or Tdap) 12/07/2025 12/08/2015, 02/12/2008, 11/23/2002, Additional history exists Varicella Vaccines Aged Out 1996 No longer eligible based on patient's age to complete this topic HIB Vaccines Completed 11/08/1997, 04/08, 03/12/1994, Additional history exists IPV Vaccines Completed 11/08/1997, 12/1995, 04/18/1995, Additional history exists MMR Vaccines Completed 11/08/1997, 04/18/1995 HPV Vaccines Completed 04/25/2009, 09/2007, 03/06/2006 Meningococcal ACWY Vaccine Aged Out 04/25/2009 N o longer eligible based on patient's age to complete this topic Hepatitis B Vaccines Completed 02/03/2020, 04/18/1995, 01/22/1994, Additional history exists Hepatitis A Vaccines Aged Out No long er eligible based on patient's age to complete this topic Meningococcal B Vaccine Aged Out No l onger eligible based on patient's age to complete this topic Pneumococcal Vaccine: Pediatrics (0 to 5 Years) and At-Risk Patients (6 to 64 Years) Aged Out No longer eligible based on patient's age to complete this topic RSV Immunization Patients Under 20 months Aged Out No longer eligible based on patient's age to complete this topic
--- NOTE | 2024-09-15 12:34 | ED_ITS ---
HPI - General Adult General Chief complaint: General Medical Stated complaint: Sore throat 1 week Time Seen by Provider: 09/15/24 12:23 Source: patient Mode of arrival: ambulatory Limitations: no limitations History of Present Illness ED Provider: Travis Matamoros HPI narrative: 28 yold female on testerone presents to the ED for sore throat, coughing up white phelgh, and bilateral eye drainage for one week. Patient denies any chest pain, shortness of breath, loss of vision, change in vision, recent trauima, abdominal pain, drooling, or change in voice. Related Data Previous Rx's ?Medication ?Instructions ?Recorded cyclobenzaprine 10 mg tablet 10 mg PO TID PRN muscle spasm #14 12/12/20 tabs ibuprofen 600 mg tablet 600 mg PO Q6H PRN pain #30 tabs 12/12/20 cefuroxime axetil 250 mg tablet 250 mg PO BID #10 tabs 09/24/22 ondansetron 4 mg disintegrating 4 mg PO Q8H 3 days #9 tabs 01/31/24 tablet cyclobenzaprine 5 mg tablet 5 mg PO TID PRN muscle spasm #10 05/25/24 tabs lidocaine 5 % topical patch 1 patch topical DAILY #15 ea 05/25/24 amoxicillin 875 mg-potassium 1 tab PO Q12H 10 days #20 tabs 09/15/24 clavulanate 125 mg tablet benzonatate 200 mg capsule 200 mg PO TID PRN cough #15 caps 09/15/24 Allergies Allergy/AdvReac Type Severity Reaction Status Date / Time novacaine Allergy Unknown Uncoded 09/15/24 09:07 Review of Systems Review of Systems: Sore throat, couging up green phelgh, and bilateral eye drainage Yes all other systems are reviewed and are negative PMFSH Past Medical History Medical History Gender dysphoria Surgical History [place] teeth extracted Social History Social History Alcohol intake: former Patient Tobacco Use Status: Never used Tobacco Substance Use Type: Marijuana Advance Directives: No Advance Directives Information Provided: Yes Physical Exam ED Vital Signs: Vital Signs - 24 hr 09/15/24 09:06 09/15/24 12:53 Temperature 97.6 F 97.6 F Pulse Rate 90 90 Respiratory Rate 16 16 Blood Pressure 122/75 122/75 Pulse Oximetry 98 98 Oxygen Delivery Method Room Air Room Air BMI result Body Mass Index 20.7 Const General: cooperative, healthy appearing, comfortable, no acute distress, well developed, alert, awake and Physically active Orientation/consciousness: patient oriented x3 [facility] Head: Yes normal to inspection, Yes No palpable skull fracture present, Yes normocephalic and Yes atraumatic Ears: hearing grossly normal bilaterally, external ears normal, TM's normal bilaterally, TM normal on the right, TM normal on the left, EAC's normal, mastoids normal and no periauricular adenopathy Throat: Yes posterior oropharynx normal, Yes uvula midline and Yes abnormal tonsil (positive for exudates) Eyes General: appearance normal, both eyes and all related structures Visual Gomez: normal visual gomez by confrontation Alignment and Position: alignment normal Periorbital: periorbital findings normal Eyelids: Yes eyelids normal Conjunctivae: conjunctivae normal Sclerae: sclerae normal Corneas: corneas normal Pupils: Equal, round and reactive pupils present EOM: EOMs intact bilaterally Direct Ophthalmoscopy: normal light reflex Neck Neck: Yes normal visual inspection, Yes full ROM, Yes no lymphadenopathy, Yes no meningeal signs, Yes trachea midline, Yes supple, No anterior neck swelling and No tender Chest Chest palpation & inspection: normal inspection of the chest and normal palpation of entire chest wall Resp Effort & Inspection: normal respiratory effort and able to speak in complete sentences Auscultation: clear to auscultation bilaterally Cardio Jugular venous distension: no JVD Heart sounds: S1 normal heart sound present and S2 normal heart sound present GI Inspection: Yes normal to inspection Palpation (GI): Soft to palpation, not firm, nontender, no guarding and not rigid General: Yes no CVA tenderness Back/Spine/Pelvis Back: no CVA tenderness and No back tenderness Skin General skin exam: no rashes or lesions noted, elasticity normal and turgor normal Neuro General: patient oriented x3, gait normal, tone normal, moves all extremities, Normal light touch and pain sensation, no meningeal signs, no focal motor deficits, CN's II-XI intact bilaterally and normal sensation to monofilament Cranial nerves: Yes Equal, round and reactive pupils present Extrem General: Yes normal to inspection, Yes full ROM and Yes capillary refill normal Psych Appearance: grossly normal, well kempt and not disheveled Medical Decision Making Medical Decision Making [facility] Narrative: 28 yold female on testerone presents to the ED for sore throat and bilateral eye drainage with coughing for one week. Patient denies any chest pain, shortness of breath, drooling, or change in voice. Physical exam negative negative for signs of peritonsillar abscess, epiglottitis, Benedict's angina, retropharyngeal abscess, meningitis, hypoxia, or any other life-threatening etiology. Patient explained worrisome signs informed to return to the ED Differential Diagnosis Differential Diagnoses: The differential diagnosis associated with the presentation includes (strep, URI,. ) Admission/Observation Consideration of admission/observation: Escalation of care including admission/observation considered Lab Data [facility] Lab Attestation statement: I reviewed the patient's lab results. Labs: Lab Results 09/15/24 09/15/24 Range/Units 09:15 12:14 Influenza Type A (PCR) NEGATIVE (Negative) Influenza Type B (PCR) NEGATIVE (Negative) RSV RNA Qual (PCR) NEGATIVE (Negative) SARS-CoV-2 RNA (RT-PCR) NEGATIVE (Negative) S. pyogenes GrpA JESUS Negative (Negative) Independent Historian Clinical information obtained from an independent historian. History obtained from or confirmed by: Other (patient) Prescription Management I considered prescription management with: Antibiotic Discharge Plan Discharge Clinical Impression: Pharyngitis, URI (upper respiratory infection) Patient Disposition: Home, Self-Care Instructions: Pharyngitis (ED), Upper Respiratory Infection (ED) Additional Instructions: Recommend follow-up with the primary care provider. Return to the ED immediately for any chest pain, shortness of breath, coughing up blood, drooling, change in voice, intractable fever, chills, rash, or any other concerning symptoms. Prescriptions: New amoxicillin-pot clavulanate 875-125 mg tablet 1 tab PO Q12H 10 Days Qty: 20 0RF benzonatate 200 mg capsule 200 mg PO TID PRN (Reason: cough) Qty: 15 0RF No Action cyclobenzaprine 10 mg tablet 10 mg PO TID PRN (Reason: muscle spasm) Qty: 14 0RF ibuprofen 600 mg tablet 600 mg PO Q6H PRN (Reason: pain) Qty: 30 0RF cefuroxime axetil 250 mg tablet 250 mg PO BID Qty: 10 0RF ondansetron 4 mg tablet,disintegrating 4 mg PO Q8H 3 Days Qty: 9 0RF lidocaine 5 % adhesive patch,medicated 1 patch topical DAILY Qty: 15 0RF Rx Instructions: leave on most painful area for up to 12 hrs cyclobenzaprine 5 mg tablet 5 mg PO TID PRN (Reason: muscle spasm) Qty: 10 0RF Stand Alone Forms: Work/School Release Interventions: ED Discharge Assessment Last Done: 09/15/24 12:53 Discharge Date/Time: 09/15/24 12:53 Print Language: American
[2024-09-15 12:53] VITALS: BP 122/75; PULSE 90; RESP 16; TEMP 36.4; O2SAT 98
[2024-09-15 13:04] LABS: Influenza A PCR NEGATIVE (Negative); Influenza B PCR NEGATIVE (Negative); Resp Syncy Virus RNA Qual PCR NEGATIVE (Negative); SARS COV2 PCR INHOUSE NEGATIVE (Negative)
== END 2024-09-15 12:53 | disposition home or self-care (01) ==
PROVIDERS: Physician Assistant; Emergency Provider Emergency Medicine Emergency Medical Services; PCP Family Medicine
DX: J02.9 Acute pharyngitis, unspecified (principal); J06.9 Acute upper respiratory infection, unspecified; Z03.818 Encounter for observation for suspected exposure to other biological agents ruled out
CPT/HCPCS: 0241U; 87651; 99282; 99283

== ENCOUNTER 2024-10-23 08:25 | Emergency (ER) | payer OTHER, SELFPAY ==
--- NOTE | 2024-10-23 | ECG_ITS ---
Test Reason : cp Blood Pressure : */* mmHG Vent. Rate : 71 BPM Atrial Rate : 71 BPM P-R Int : 154 ms QRS Dur : 82 ms QT Int : 348 ms P-R-T Axes : 35 88 36 degrees QTcB Int : 378 ms Normal sinus rhythm Normal ECG When compared with ECG of 25-May-2024 10:39, No significant change was found Referred By: Generic ED Physician Electronically Signed By: AGNIESZKA RUVALCABA
--- NOTE | ~2024-10-23 | XR_ITS ---
EXAMINATION: XR CHEST 2 VIEWS HISTORY: Chest pain COMPARISON: Comparison is made with the prior examination dated 05/25/2024. FINDINGS: PA and lateral views of the chest are submitted. The lungs are expanded and clear. There is no pleural effusion, pneumothorax, or pulmonary vascular congestion. The heart is normal in size. The bones are intact. XR/XR chest 2V IMPRESSION: No acute cardiopulmonary abnormality. Electronically signed by: Boo Vergara MD 10/23/2024 09:34 AM EDT
--- NOTE | ~2024-10-23 | CT_ITS ---
EXAMINATION: CT ABDOMEN AND PELVIS WITH CONTRAST CLINICAL INFORMATION: Left lower quadrant pain and suprapubic abdominal pain. COMPARISON: 01/31/2024. TECHNIQUE: Multidetector volumetric images were obtained from the superior aspect of the liver through the pubic symphysis following administration 85 mL of Omnipaque 350 intravenous contrast. Sagittal and coronal reformatted images were obtained on the technologist's workstation. Oral contrast: No This CT examination was performed using dose optimization techniques as appropriate, variously including the following: *Automated exposure control *Adjustment of mA and/or kV according to patient size (this includes techniques or standardized protocols for targeted exams where dose is matched to indication/reason for exam; i.e. extremities or head) *Use of iterative reconstruction technique FINDINGS: LUNG BASES: The visualized lung bases are unremarkable. LIVER, GALLBLADDER, AND BILIARY TREE: The liver is normal in size and shape. There is diffuse periportal edema likely on the basis of hydration. There is focal fatty infiltration abutting the falciform ligament. No focal hepatic lesion or biliary ductal dilatation is present. The gallbladder is unremarkable with no evidence of radiopaque gallstones, gallbladder wall thickening, or obvious pericholecystic inflammatory changes. PANCREAS: Unremarkable. SPLEEN: Unremarkable. ADRENAL GLANDS: Unremarkable. KIDNEYS AND URETERS: The kidneys are normal in size, shape, and attenuation. No hydronephrosis, hydroureter, or calculi seen. No perinephric stranding. BLADDER: Unremarkable. GASTROINTESTINAL TRACT: The small and large bowel are unremarkable. The appendix is unremarkable. ABDOMINAL WALL: No significant hernia is appreciated. LYMPH NODES: No abnormal lymphadenopathy present. VASCULAR: Unremarkable. PELVIC VISCERA: No acute finding present. No adnexal mass. OSSEOUS STRUCTURES: No suspicious lytic or blastic bone lesion. CT/CT abdomen pelvis w IV con IMPRESSION: 1. No acute finding in the abdomen or pelvis. 2. Periportal edema present, likely secondary to hydration. 3. Mild focal fatty infiltration of the liver abutting the falciform ligament. Electronically signed by: Dakota Ayers MD 10/23/2024 11:13 AM EDT
[2024-10-23 08:34] VITALS: BP 131/87; PULSE 78; RESP 16; TEMP 36.8; O2SAT 99; BMI 20.3
--- NOTE | 2024-10-23 08:38 | ED_ITS ---
HPI - General Adult General Chief complaint: General Medical Stated complaint: CP, Left abd pain, migraine, nausea, Time Seen by Provider: 10/23/24 08:38 Source: patient Mode of arrival: ambulatory Limitations: no limitations History of Present Illness ED Provider: HPI narrative: 28-year-old biologic female transgender to male with prior history of hysterectomy, oophorectomy, chronic chest pains likely costochondritis, recurrent abdominal pains, presenting with significant suprapubic and left lower quadrant abdominal pain, nausea, vomiting, also headache with left eye discomfort without vision changes, this is acute on chronic presentation. Related Data Previous Rx's ?Medication ?Instructions ?Recorded cyclobenzaprine 10 mg tablet 10 mg PO TID PRN muscle s pasm #14 12/12/20 tabs ibuprofen 600 mg tablet 600 mg PO Q6H PRN pain #30 t abs 12/12/20 cefuroxime axetil 250 mg tablet 250 mg PO BID #10 tabs 09/24/22 ondansetron 4 mg disintegrating 4 mg PO Q8H 3 days #9 tabs 01/31/24 tablet cyclobenzaprine 5 mg tablet 5 mg PO TID PRN muscle spa sm #10 05/25/24 tabs lidocaine 5 % topical patch 1 patch topical DAILY #15 ea 05/25/24 amoxicillin 875 mg-potassium 1 tab PO Q12H 10 days #20 tabs 09/15/24 clavulanate 125 mg tablet benzonatate 200 mg capsule 200 mg PO TID PRN cough #15 caps 09/15/24 ondansetron 4 mg disintegrating 4 mg PO Q8H PRN nausea and 10/23/24 tablet vomiting #4 tabs sucralfate 1 gram tablet (Carafate) 1 g PO Q6H 7 days #28 tabs 10/23/24 Allergies Allergy/AdvReac Type Severity Reaction Status Date / Time procaine (From Novocain) Allergy Intermediate Unknown Verified 10/23/24 08:37 Review of Systems 2 Constitutional: Constitutional: Reports as per [facility] Past Medical History Medical History Gender dysphoria Surgical History History of hysterectomy [place] teeth extracted Social History Social History Alcohol intake: former Patient Tobacco Use Status: Never used Tobacco Substance Use Type: Marijuana Advance Directives: No Advance Directives Information Provided: No Do you have a plan to hurt others: No Plan Physical Exam ED Vital Signs: Vital Signs - 24 hr 10/23/24 08:34 10/23/24 10:08 Temperature 98.3 F 97.7 F Pulse Rate 78 63 Respiratory Rate 16 11 L Blood Pressure 131/87 117/85 Pulse Oximetry 99 98 Oxygen Delivery Method Room Air BMI result Body Mass Index 20.3 Const Other: * Gen: ?Overall well-appearing patient * HEENT: PERRLA, EOMI, MMM, * Neck: Supple, no LAD, no meningismus * CV: RRR, no obvious murmurs appreciated * Resp: ?No wheezing rales rhonchi no stridor moving air well * Abd: ?Bowel sounds are present, suprapubic and left lower quadrant tenderness with voluntary guarding * MSK: FROM, strength 5/5 all extremities * Skin: Warm, dry, intact, * Neuro: ?Alert and oriented x3, moving upper and lower extremities symmetrically, no obvious facial asymmetry noted Medications Administered Discontinued Medications Generic Name Dose Route Start Last Admin Trade Name Freq PRN Reason Stop Dose Admin Belladonna Alkaloids/Phenobarbital 10 ml 10/23/24 09:19 10/23/24 09:31 Phenobarb/Hyoscy/Atropine/Scop 10 Ml Elixir PO 10/23/24 09:20 10 ml ONCE ONE Administration Sodium Chloride 1,000 mls @ 999 mls/hr 10/23/24 09:00 10/23/24 10:13 Ns IV 10/23/24 10:00 Infused .Q1H1M BOB Infusion Sodium Chloride 1,000 mls @ 999 mls/hr 10/23/24 09:30 10/23/24 10:14 Ns IV 10/23/24 10:30 Not Given .Q1H1M BOB Acetaminophen 1,000 mg in 100 mls @ 400 mls/hr 10/23/24 09:27 10/23/24 09:45 Ofirmev IV 10/23/24 09:41 Infused ONCE ONE Infusion Iohexol 100 ml 10/23/24 10:55 10/23/24 10:55 Iohexol 350 Mg/Ml 100 Ml Infus..Btl IV 10/23/24 10:56 85 ml ONCE ONE Administration Ketorolac Tromethamine 15 mg 10/23/24 09:18 10/23/24 09:26 Ketorolac Tromethamine 15 Mg/Ml Vial IM 10/23/24 09:19 15 mg ONCE ONE Administration Ondansetron HCl 4 mg 10/23/24 08:49 10/23/24 09:00 Ondansetron Hcl 4 Mg/2 Ml Vial IVPUSH 10/23/24 08:50 4 mg ONCE ONE Administration Ondansetron HCl 4 mg 10/23/24 09:18 10/23/24 09:26 Ondansetron Hcl 4 Mg/2 Ml Vial IVPUSH 10/23/24 09:19 4 mg ONCE ONE Administration Medical Decision Making Medical Decision Making MDM Narrative: Presenting with multiple symptoms, chest pain, on testosterone, no hypoxic to his tachycardia to suspect PE, considerations include pneumonia, pneumothorax, costochondritis, headache as well without any go exam findings or fevers to suspect infectious etiology such as meningitis starting on my exam as the amount of abdominal tenderness, does have history of hysterectomy and oophorectomy, we will obtain imaging with considerations as below, we will medicate for pain re- evaluate. Differential Diagnosis Differential Diagnoses: The differential diagnosis associated with the presentation includes Appendicitis, diverticulitis, SBO, enteritis, bowel perforation, IBS, PE Admission/Observation Consideration of admission/observation: Escalation of care including admission/observation considered 2022 Emergency Medicine Coding Guide from [email or web address] on 10/23/2024 All calculations should be rechecked by clinician prior to use RESULT SUMMARY: 5 Estimated Level of Service Problems: Moderate (4) Risk: High (5) Data: Extensive (5) NARRATIVE MDM: This patient's problem complexity is Moderate as patient: has an acute illness with systemic symptoms. This patient's risk is High due to: overall presentation requiring evaluation for a potentially High-risk process. This patient's data complexity is Extensive due to: -multiple tests ordered/reviewed -external notes reviewed -independent interpretation of imaging or EKG INPUTS: Number and Complexity ?> 6 = 4: acute illness w/systemic sx (f) Risk level ?> 4 = High Tests ordered ?> 3 = >= Tests results reviewed (excluding labs) ?> 3 = >= Prior external notes reviewed ?> 3 = >= Assessment requiring and independent historian ?> 0 = No Independent interpretation of tests ?> 1 = Yes Discussed management/test interpretation w/external professional ?> 0 = No Lab Data MDM Lab Attestation statement: I reviewed the patient's lab results. 10/23/24 08:58 10/23/24 08:58 Labs: Lab Results 10/23/24 10/23/24 Range/Units 08:58 10:19 WBC 5.5 (4.8-10.8) X10*3/uL RBC 5.04 (4.20-5.50) X10*6/uL Hgb 14.6 (12.0-16.0) g/dl Hct 43.8 (37.0-47.0) % MCV 86.9 (80.0-98.0) fL MCH 29.0 (27.0-33.0) pg MCHC 33.3 (31.0-35.0) g/dl RDW 12.7 (11.0-16.0) % Plt Count 222 (160-400) X10*3/uL MPV 9.4 (9.4-12.3) fL Immature Gran % (Auto) 0.4 (0.0-0.4) % Neut % (Auto) 55.0 (45-73) % Lymph % (Auto) 34.6 (20-40) % [place] % (Auto) 7.5 (2-11) % Eos % (Auto) 1.8 (0-4) % Baso % (Auto) 0.7 (0-2) % Lymph # (Auto) 1.9 (1.2-4.9) X10*3/uL [place] # (Auto) 0.4 (0.1-1.2) X10*3/uL Eos # (Auto) 0.1 (0.0-0.4) X10*3/uL Baso # (Auto) 0.0 (0.0-0.2) X10*3/uL Abs Immat Gran (auto) 0.02 (0.00-0.03) X10*3/uL Absolute Neuts (auto) 3.0 (2.0-8.3) x10*3/uL Absolute Nucleated RBC 0.000 (0.0-0.012) X10*3/uL Nucleated RBC % (auto) 0.0 (0.0-0.2) /100WBC Sodium 141 (135-145) mmol/L Potassium 3.5 (3.3-5.1) mmol/L Chloride 109 H (96-108) mmol/L Carbon Dioxide 25 (22-29) mmol/L Anion Gap 11 L (12-20) BUN 10 (9-16) mg/dL Creatinine 0.97 (0.5-1.4) mg/dL Estim Creat Clear Calc 78.5 Estimated GFR > 60 Random Glucose 96 (60-115) mg/dL Calcium 9.1 D (8.4-10.2) mg/dL Total Bilirubin 0.4 (0.0-1.0) mg/dL Direct Bilirubin 0.2 (0.0-0.5) mg/dL AST 22 (5-31) U/L ALT 8 (0-31) U/L Alkaline Phosphatase 53 (39-117) U/L Troponin I High Sens < 2.7 (<3.5-17.0) ng/L Total Protein 7.4 (6.5-8.0) g/dL Albumin 4.4 (3.5-5.0) g/dL Lipase 14 (8-78) U/L Urine Color Yellow Urine Appearance Clear Urine pH 7.5 (5.0-9.0) Ur Specific [place] 1.015 (1.005-1.025) Urine Protein Negative (Neg-Trace) mg/dL Urine Glucose (UA) Negative (Negative) mg/dL Urine Ketones Negative (Negative) mg/dL Urine Blood Negative (Negative) Urine Nitrite Negative (Negative) Ur Leukocyte Esterase Small (1+) H (Negative) Urine RBC 0-2 (0-2) /HPF Urine WBC 11-20 H (0-5) /HPF Ur Squamous Epith Cells 0-2 (0-2) /HPF Urine Bacteria None Seen (None Seen) Hyaline Casts 0-2 (0-2) /LPF Influenza Type A (PCR) NEGATIVE (Negative) Influenza Type B (PCR) NEGATIVE (Negative) RSV RNA Qual (PCR) NEGATIVE (Negative) SARS-CoV-2 RNA (RT-PCR) NEGATIVE (Negative) Independent Interpretation I performed an independent interpretation of an: Plain X-Ray (My independent chest xray interpretation: Lungs: Lungs are clear bilaterally without evidence of focal consolidation, pleural effusion, or pneumothorax. Cardiac silhouette is unremarkable, no obvious mediastinal widening, no obvious bony abnormalities such as fractures. Impression: Normal chest X-r) Interpretation: 71 beats per minute otherwise normal ECG without dysrhythmia, AV reilly blocks or ST-T changes to suspect underlying ACS, my independent interpretation Radiology Impression Discussion of test interpretation with radiology: I have reviewed the radiologist's reading. (1. No acute finding in the abdomen or pelvis. 2. Periportal edema present, likely secondary to hydration. 3. Mild focal fatty infiltration of the liver abutting the falciform ligament. ) Discharge Plan Discharge Clinical Impression: Chest pain, precordial, Left lower quadrant abdominal pain Patient Disposition: Home, Self-Care Instructions: Chest Pain (ED), Abdominal Pain (ED) Additional Instructions: You had fairly extensive workup today including blood work, chest x-ray, EKG, cat scan, reassuringly all of the workup has been unremarkable, I would like you to take Carafate 1 pill 20 minutes before any meals for the next 1 week, Zofran as needed for nausea and vomiting, and I did give you a dose of steroids in the emergency department, I am hoping that is going to really take care of inflammation in your chest area which I believe is due to costochondritis. But you continue taking Tylenol 975 mg every 6 hours, and follow up with your provider Prescriptions: New sucralfate [Carafate] 1 gram tablet 1 g PO Q6H 7 Days Qty: 28 0RF ondansetron 4 mg tablet,disintegrating 4 mg PO Q8H PRN (Reason: nausea and vomiting) Qty: 4 0RF No Action cyclobenzaprine 10 mg tablet 10 mg PO TID PRN (Reason: muscle spasm) Qty: 14 0RF ibuprofen 600 mg tablet 600 mg PO Q6H PRN (Reason: pain) Qty: 30 0RF cefuroxime axetil 250 mg tablet 250 mg PO BID Qty: 10 0RF ondansetron 4 mg tablet,disintegrating 4 mg PO Q8H 3 Days Qty: 9 0RF lidocaine 5 % adhesive patch,medicated 1 patch topical DAILY Qty: 15 0RF Rx Instructions: leave on most painful area for up to 12 hrs cyclobenzaprine 5 mg tablet 5 mg PO TID PRN (Reason: muscle spasm) Qty: 10 0RF amoxicillin-pot clavulanate 875-125 mg tablet 1 tab PO Q12H 10 Days Qty: 20 0RF benzonatate 200 mg capsule 200 mg PO TID PRN (Reason: cough) Qty: 15 0RF Referrals: May Elizalde MD [Primary Care Provider, Family Practice] - 2 weeks Clinical Impression: Left lower quadrant abdominal pain; Chest pain, precordial Print Language: Divehi
--- OUTSIDE RECORDS SUMMARY | 2024-10-23 08:52 | XMS_ITS | Encounter Summary ---
Demographics Address [address] [place] [address] Mobile Phone Home Phone Email Address Preferred Language Romansh Marital Status /Civil Union Yarsani Affiliation Unknown Race Other Race Ethnic Group or Author Organization [facility] Address [address] [place] [id number] Phone Support Name Relationship Address Phone Felicita Arellano Personal Relationship [address] [place] [address] Care Team Providers Care Divine Healer Name Role Phone May Elizalde MD Primary Care Provider Encounter Details Date Type Department Care Team (Late st Contact Info) Description 12/27/2022 Transcribe Orders Virtual Department [address] [place] [address] Tabitha Torrez PA [address] [place] [address] [email or web address] Abdominal pain, unspecified abdominal location (Primary Dx); Rectal bleeding Social History Tobacco Use Types Packs/Day Years Used Date Smoking Tobacco: Never Smokeless Tobacco: Never Alcohol Use Standard Drinks/Week Comments Not Currently 0 (1 standard drink = 0.6 oz pur e alcohol) socially at holidays Education Answer Date Recorded Are you interested in more education? Not on niko e 08/04/2022 Are you concerned about learning? Not on file 08/04/2022 No 08/04/2022 No 08/04/2022 Digital Access Answer Date Recorded No 08/29/2022 No 08/29/2022 Reliable internet access at home? Not on file 08/29/2022 Device with a working camera? Not on file Comments Unknown Sex and Gender Information Value Date Recorded Sex Assigned at Female 10/06/2020 2:56 PM EDT Legal Sex Female 1:58 PM EDT Gender Identity Male 10/06/2020 2:56 PM EDT Sexual Orientation Bisexual 01/08/2023 11 :59 PM EDT documented as of this encounter Plan of Treatment Upcoming Encounters Date Type Department Care Team (Late st Contact Info) Description 11/04/2024 9:40 AM EDT Office Visit [facility] [place] [facility] [address] [facility] [place] [address] [place] [address] May Elizalde MD [address] [facility] 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 [place] [address] PCP - General Family Medicine 12/28/20 documented as of this encounter Additional Source Comments The information contained in this document represents components of the legal health record. It is not the complete legal health record.[facility]
--- OUTSIDE RECORDS SUMMARY | 2024-10-23 08:52 | XMS_ITS | Clinical Summary ---
Author Organization [facility] it Address [address] [place] [address] Care Team Providers Care Disease Intervention Specialist Name Role Phone Unavailable Primary Care Provider [...] COVID-19 Vaccine ( season) 2023 Influenza Vaccine (#1) 2024 , 04/26/2010, 04/25/2009, Additional history exists DTaP,Tdap,and Td [...] 5 Years) and At-Risk Patients (6 to 49 Years) Aged Out No longer eligible based on patient's age to complete this topic RSV Immunization Patients Under 20 months Aged Out No longer eligible based on patient's age to complete this topic
--- NOTE | 2024-10-23 08:58 | PC.NURSE ---
Pt reports full hysterectomy with oophorectomy, has been on SQ testosterone x 4 years with no changes or side affects.
[2024-10-23 09:04] LABS: MANUAL DIFF FLAG NO
[2024-10-23 09:07] LABS: Hematocrit 43.8 % (37.0-47.0); Hemoglobin 14.6 g/dl (12.0-16.0); Imm Gran Abs Auto 0.02 X10*3/uL (0.00-0.03); Imm Gran Pct Auto 0.4 % (0.0-0.4); Lymphocytes Absolute Auto 1.9 X10*3/uL (1.2-4.9); Mean Corpuscular HGB Conc 33.3 g/dl (31.0-35.0); Mean Corpuscular Hemoglobin 29.0 pg (27.0-33.0); Mean Corpuscular Volume 86.9 fL (80.0-98.0); NRBC Abs Auto 0.000 X10*3/uL (0.0-0.012); NRBC Pct Auto 0.0 /100WBC (0.0-0.2); Platelet Count 222 X10*3/uL (160-400); Red Blood Count 5.04 X10*6/uL (4.20-5.50); White Blood Count 5.5 X10*3/uL (4.8-10.8)
--- NOTE | 2024-10-23 09:16 | PC.NURSE ---
Pt ambulatory to xray with a steady gait.
[2024-10-23 09:20] LABS: Alanine Aminotransferase 8 U/L (0-31); Albumin Level 4.4 g/dL (3.5-5.0); Alkaline Phosphatase 53 U/L (39-117); Anion Gap 11 (12-20); Aspartate Amino Transferase 22 U/L (5-31); Blood Urea Nitrogen 10 mg/dL (9-16); Calcium 9.1 mg/dL (8.4-10.2); Carbon Dioxide 25 mmol/L (22-29); Chloride 109 mmol/L (96-108); Creatinine Clr Calc Pharmacy 78.5; Estimated Glomerular Filt Rate > 60; Lipase 14 U/L (8-78); Potassium 3.5 mmol/L (3.3-5.1); Sodium 141 mmol/L (135-145); Total Protein 7.4 g/dL (6.5-8.0)
[2024-10-23 09:30] LABS: Troponin-I High Sensitivity < 2.7 ng/L (<3.5-17.0)
[2024-10-23] MEDS: PHENobarb/Hyoscy/Atropine/Scop 10 ML ELIXIR PO (09:31)
[2024-10-23 09:45] LABS: Resp Syncy Virus RNA Qual PCR NEGATIVE (Negative); SARS COV2 PCR INHOUSE NEGATIVE (Negative)
[2024-10-23 10:08] VITALS: BP 117/85; PULSE 63; RESP 11; TEMP 36.5; O2SAT 98
--- NOTE | 2024-10-23 10:23 | PC.NURSE ---
Pt to CT.
[2024-10-23 10:27] LABS: Appearance Urine Clear; Glucose Urine UA Negative (Negative); PH 7.5 (5.0-9.0); Specific Gravity - Urine 1.015 (1.005-1.025); UMIC TRIGGER UACC YES
[2024-10-23 10:29] LABS: UACC Culture Trigger YES
[2024-10-23] MEDS: iohexoL 350 MG/ML 100 ML INFUS..BTL IV (10:55)
[2024-10-23 12:19] VITALS: BP 118/82; PULSE 54; RESP 16; O2SAT 98
[2024-10-23 12:26] VITALS: BP 118/82; PULSE 54; RESP 16; TEMP 36.8; O2SAT 98
== END 2024-10-23 12:26 | disposition home or self-care (01) ==
PROVIDERS: Emergency Provider Emergency Medicine; PCP Family Medicine
DX: R10.32 Left lower quadrant pain (principal); R07.2 Precordial pain; R51.9 Headache, unspecified; R00.0 Tachycardia, unspecified; Z03.818 Encounter for observation for suspected exposure to other biological agents ruled out; Z79.899 Other long term (current) drug therapy
CPT/HCPCS: 71046; 74177; 80048; 80076; 81001; 83690; 84484; 85025; 87086; 87637; 93005; 96361; 96372; 96374; 96375; 99284; J0131; J1100; J1885; J2405; Q9967

== ENCOUNTER → 2024-10-23 08:28 | Outpatient (BNV) | payer OTHER, SELFPAY | PROVIDERS: Emergency Provider Emergency Medicine; PCP Family Medicine; Visit Provider Internal Medicine | DX: R07.9 Chest pain, unspecified (principal) | CPT/HCPCS: 93010 ==

== ENCOUNTER → 2024-10-23 08:49 | Outpatient (BNV) | payer OTHER, SELFPAY | PROVIDERS: Emergency Provider Emergency Medicine; PCP Family Medicine; Visit Provider Radiology Diagnostic Radiology | DX: R60.9 Edema, unspecified (principal); R07.9 Chest pain, unspecified | CPT/HCPCS: 71046; 74177 ==